=== PATIENT | female | born 1965 | race American Indian/Alaskan Native ===

== ENCOUNTER 2020-03-16 20:13 | Emergency (ER) | payer SELFPAY ==
--- NOTE | 2020-03-17 00:49 | Emergency Department Report ---
[facility] Chief Complaint: Eye Problems Stated Complaint: EYE PAIN Time Seen by Provider: 03/17/20 00:44 Duration: 3 Days Side: Left Severity: mild, moderate Symptoms: Yes Eye Itching, Yes Eye Redness, Yes Eye Pain, Yes Mucous Drainage, Yes Purulent Drainage, Yes Preceding URI, Yes H/O Allergic Rhinitis, No Trauma, No Fever ED Review of Systems ROS: Stated complaint: EYE PAIN Other details as noted in HPI Comment: All other systems reviewed and negative ED Past Medical Hx - Past Medical History Previous Medical History?: Yes Additional medical history: fibroids. endometerosis - Surgical History Past Surgical History?: Yes Additional Surgical History: laser laproscopic. sinus surgery. hernia repair as a child. Myomectomy - Social History Smoking Status: Never Smoker Substance Use Type: None - Medications Home Medications: Home Medications Medication Instructions Recorded Confirmed Last Taken Type Ketorolac Tromethamin 0.4%(Nf) 1 drop OP QID #1 bottle 03/17/20 Unknown Rx [Acular Ls 0.4% Ophth Roxy] Tobramycin [Tobrex] 1 drop OP Q4H #1 bottle 03/17/20 Unknown Rx [facility] Exam - Exam General: Vital signs noted. No distress. Alert and acting appropriately. Eye Exam: Left Injection, Left EOMI, Left Purulent Discharge, Neither Chemosis, Neither Abnormal Pupil, Neither Eye Foreign Body, Neither Lid Foreign Body, Neither Mucous Discharge, Neither Fluorescein Uptake, Neither Fluorescein Uptake (slit lamp), Neither Cell/Flare (slit lamp), Neither Corneal Edema, Neither Photophobia HEENT: Yes Nasal Congestion (Left nasal turbinate swelling and congestion now with yellowish sinus drainage), No Pharyngeal Erythema Remainder of HEENT: Normal Lungs: Yes Clear Lung Sounds, Yes Good Air Exchange, No Wheezes, No Stridor, No Cough, No Nasal Flaring, No Retractions, No Use of Accessory Muscles Exam: Mild swelling around the left periorbital region. The lacrimal apparatus feels normal no evidence of any overt dacryocystitis is present ED Course Vital Signs 03/16/20 20:48 Temperature 98.6 F Pulse Rate 79 Respiratory 17 Rate Blood Pressure 184/71 O2 Sat by Pulse 97 Oximetry Critical care attestation.: If time is entered above; I have spent that time in minutes in the direct care of this critically ill patient, excluding procedure time. ED Disposition Clinical Impression: Conjunctivitis, Nasal congestion Disposition: DC- TO HOME OR SELFCARE Is pt being admited?: No Does the pt Need Aspirin: No Condition: Stable Prescriptions: Ketorolac Tromethamin 0.4%(Nf) [Acular Ls 0.4% Ophth Roxy] 1 drop OP QID #1 bottle Tobramycin [Tobrex] 1 drop OP Q4H #1 bottle Referrals: PRIMARY MD BHARAT [Primary Care Provider] - 3-5 Days SAMMY BAUTISTA MD [Staff Physician] - 3-5 Days
[2020-03-17 05:38] VITALS: BP 177/110
== END 2020-03-17 02:20 | disposition home or self-care (01) ==
LOC: ED 20:13
DX: H10.9 Unspecified conjunctivitis (principal); R09.81 Nasal congestion; Z79.899 Other long term (current) drug therapy; Z88.6 Allergy status to analgesic agent; Z88.2 Allergy status to sulfonamides
CPT/HCPCS: 99282

== ENCOUNTER 2021-09-10 06:31 | Inpatient (IN) | payer BC ==
[2021-09-10] MEDS ORDERED: ONDANSETRON 4 MG ODT TAB PO ONE (07:53)
[2021-09-10 08:06] LABS: Basophils # (Auto) 0.1 K/mm3 (0.0-0.1); Basophils % (Auto) 0.5 % (0.0-1.8); Eosinophils % (Auto) 0.2 % (0.0-4.3); Hemoglobin 13.9 gm/dl (10.1-14.3); Lymphocytes # (Auto) 1.2 K/mm3 (1.2-5.4); Lymphocytes % (Auto) 7.1 % (13.4-35.0); Mean Corpuscular HGB Conc 34 % (30-34); Mean Corpuscular Volume 80 fl (79-97); Monocytes % (Auto) 6.3 % (0.0-7.3); Platelet Count 231 K/mm3 (140-440); Red Blood Count 5.13 M/mm3 (3.65-5.03); Red Cell Distribution Width 14.1 % (13.2-15.2)
[2021-09-10 08:10] LABS: Bacteria,Urine 1+ /HPF (Negative); Bilirubin,Urine NEG (Negative); Blood,Urine NEG (Negative); Color,Urine Yellow (Yellow); Mucus,Urine FEW /HPF; Urobilinogen,Urine < 2.0 mg/dL (<2.0)
[2021-09-10 08:20] LABS: Alanine Aminotransferase 18 units/L (7-56); Albumin 4.7 g/dL (3.9-5); Blood Urea Nitrogen 8 mg/dL (7-17); Calcium 9.1 mg/dL (8.4-10.2); Hemolysis Index 5
[2021-09-10 08:24] LABS: BUN/Creatinine Ratio 11
[2021-09-10] MEDS ORDERED: ONDANSETRON 4 MG/2 ML INJ IV ONE (12:12)
[2021-09-10] MEDS ORDERED: KETOROLAC 30 MG/1 ML INJ IV ONE (12:12)
[2021-09-10] MEDS ORDERED: SODIUM CHLORIDE 0.9% 1000 ML 1,000 ML IV ONE (12:12)
--- NOTE | 2021-09-10 12:15 | Emergency Department Report ---
HPI - General Chief Complaint: Nausea/Vomiting/Diarrhea Time Seen by Provider: 09/10/21 11:54 - HPI HPI: For the last 3 days the patient has been experiencing several episodes of nausea vomiting of clear emesis as well as brown watery diarrhea associated with moderate intermittent diffuse crampy abdominal pain. The patient denies fever chills. She has not taken any medicines for this. Nothing makes it better nor worse. Today she is no longer vomiting but dry heaving. ED Past Medical Hx - Past Medical History Hx Diabetes: Yes Additional medical history: fibroids. endometerosis - Surgical History Additional Surgical History: laser laproscopic. sinus surgery. hernia repair as a child. Myomectomy. BTL - Family History Family history: no significant - Social History Smoking Status: Never Smoker Substance Use Type: None - Medications Home Medications: Home Medications Medication Instructions Recorded Confirmed Last Taken Type Ketorolac Tromethamin 0.4%(Nf) 1 drop OP QID #1 bottle 03/17/20 Unknown Rx [Acular Ls 0.4% Ophth Roxy] Tobramycin [Tobrex] 1 drop OP Q4H #1 bottle 03/17/20 Unknown Rx ED Review of Systems ROS: Stated complaint: FOOD POISON,DIARRHEA,ABDDOMINAL CRAMPING Other details as noted in HPI Other: All other systems reviewed and negative. Physical Exam - Physical Exam Vital Signs: Vital Signs 09/10/21 06:49 Temperature 99.8 F H Pulse Rate 95 H Respiratory 18 Rate Blood Pressure 154/81 O2 Sat by Pulse 96 Oximetry Physical Exam: Physical Exam: Constitutional: AAOX3. No acute distress. No diaphoresis. Obese HENT: Normocephalic. Pupils equal and reactive. No throat edema or erythema. Neck: No neck rigidity or tenderness. Cardiovascular: Heart sounds: No murmur. Normal rate and regular rhythm. Pulses: Intact distal pulses. Lungs: No wheezing or rales. Chest wall: No tenderness. Abdominal: No distension. No mass/pulsatile mass. Minimal diffuse abdominal tenderness, no guarding nor rebound. Musculoskeletal: Normal range of motion. No edema, No calf TTP. Skin: Warm and dry. Neurological: Alert and oriented to person, place, and time. Psychiatric: Mood and affect normal. Normal cognition and memory. Normal judgement. ED Course Vital Signs 09/10/21 06:49 Temperature 99.8 F H Pulse Rate 95 H Respiratory 18 Rate Blood Pressure 154/81 O2 Sat by Pulse 96 Oximetry - Reevaluation(s) Reevaluation #1: 09/10/21 15:34 The patient has an elevated white blood cell count of 16,000. Her CAT scan came back as acute appendicitis with a appendix measurement of 14 mm and very appendiceal inflammatory changes. There is no free fluid or air. I spoke to who recommended we keep the patient n.p.o. she will come to see the patient. I spoke to Dr. Simon who will be admitting the patient. ED Medical Decision Making - Lab Data Result diagrams: 09/10/21 07:35 09/10/21 07:35 Critical care attestation.: If time is entered above; I have spent that time in minutes in the direct care of this critically ill patient, excluding procedure time. ED Disposition Clinical Impression: Acute appendicitis Disposition: [facility] Is pt being admited?: Yes Does the pt Need Aspirin: No Condition: Stable Instructions: Appendicitis, Adult Referrals: PRIMARY CARE, [Primary Care Provider] - 3-5 Days
[2021-09-10] MEDS ORDERED: MORPHINE 2 MG/1 ML INJ IV ONE (13:02)
--- NOTE | 2021-09-10 14:16 | Cat Scan Report ---
CT ABDOMEN AND PELVIS WITH CONTRAST HISTORY: abd pain.. Generalized nausea with vomiting for 3 days, diarrhea COMPARISON: None. TECHNIQUE: CT images of the abdomen and pelvis were obtained following administration of intravenous contrast. All CT scans at this location are performed using CT dose reduction for ALARA by means of automated exposure control. CONTRAST: 100 ml of intravenous contrast administered. FINDINGS: Lungs/bones: There is mild patchy bibasilar airspace disease. Otherwise clear lungs. There are degen erative changes in the spine and the pelvis with no acute osseous abnormality identified. Abdomen/pelvis: The liver, gallbladder, spleen, pancreas, adrenals, right kidney, and proximal GI tr act appear unremarkable. Punctate nonobstructive nephrolithiasis seen in the upper pole the left kidn ey. Fluid-filled appearance of the distal small bowel and the colon with inflammatory change in the cecum and ileocecal valve. The upstream bowel is slightly dilated and fluid-filled and there are several p rominent regional mesenteric lymph nodes. There is a large amount of fluid within the uterus. Ovaries are not well seen on this exam. Small cristina unt of ascites is present in the right lower quadrant. IMPRESSION: 1. Inflammatory change at the cecum and terminal ileum may be seen with enterocolitis with mild obstr uctive/ileus effect on the upstream small bowel which is dilated and fluid-filled. 2. Additional incidental findings as above including large amount of fluid within the endometrial can al. Correlate with history and consider nonemergent pelvic ultrasound for further evaluation. Signer Name: Gerald Lyles MD Signed: 09/10/2021 2:12 PM Workstation Name: [id number]
[2021-09-10] MEDS ORDERED: PIPERACILLIN/TAZOBACTAM 3.375 3.375 GM/50 ML BAG IV ONE (15:21)
[2021-09-10] MEDS ORDERED: oxyCODONE /ACETAMINOPHEN 5-325MG TAB PO PRN (15:37)
[2021-09-10] MEDS ORDERED: ALBUTEROL 2.5 MG/3 ML NEBU IH PRN (15:37)
[2021-09-10] MEDS ORDERED: HYDROmorphone 0.5 MG/0.5 ML INJ IV PRN (15:37)
--- NOTE | 2021-09-10 15:51 | History and Physical Report ---
History of Present Illness Chief complaint: My stomach hurts History of present illness: 56 YO Female with Obesity Hypoventilation Syndrome, DM, Endometriosis, Metabolic Syndrome presents to ED for evaluation. Patient states that she had experienced abdominal pain over the past 1 day with persistent and worsening symptoms over the same timeframe. Patient knowledges nausea, multiple episodes of vomiting, and multiple loose stools. Patient transported to [facility] via private vehicle for further care and evaluation of the aforementioned symptoms. The patient was seen and evaluated in the emergency department. All lab and imaging studies reviewed. Patient underwent CT scan of the abdomen pelvis and was found to have evidence of acute appendicitis complicated by systemic inflammatory response syndrome. Surgery team consulted. Patient taken to operating room as per surgical team. Patient admitted to medical floor due to increased risk of worsening symptoms. Patient denies fever, chills, chest pain, palpitation, adductive cough, skin rash, recent contact, ingestion of food/water from new or different sources, or known exposure to COVID-19. No prior admission for review. No medication listed at time of admission for reconciliation. Advanced care planning conducted in ED. Past History Past Medical History: diabetes, other (See HPI) Past Surgical History: hernia repair, bowel surgery Social history: single. denies: smoking, alcohol abuse, prescription drug abuse Family history: diabetes, hypertension Medications and Allergies Allergies Allergy/AdvReac Type Severity Reaction Status Date / Time codeine Allergy Vomiting Verified 11/18/15 11:45 Sulfa (Sulfonamide Allergy Unknown Verified 11/18/15 11:45 Antibiotics) Home Medications Medication Instructions Recorded Confirmed Last Taken Type Ketorolac Tromethamin 0.4%(Nf) 1 drop OP QID #1 bottle 03/17/20 Unknown Rx [Acular Ls 0.4% Ophth Roxy] Tobramycin [Tobrex] 1 drop OP Q4H #1 bottle 03/17/20 Unknown Rx Active Meds: Active Medications Acetaminophen (Acetaminophen 325 Mg Tab) 650 mg PO Q4H PRN PRN Reason: Pain MILD(1-3)/Fever >100.5/SANDERS Albuterol (Albuterol 2.5 Mg/3 Ml Nebu) 2.5 mg IH Q4HRT PRN PRN Reason: Shortness Of Breath Hydromorphone HCl (Hydromorphone 0.5 Mg/0.5 Ml Inj) 0.5 mg IV Q13H PRN PRN Reason: Pain , Severe (7-10) Piperacillin Sod/Tazobactam Sod (Zosyn/Ns 3.375gm/50ml) 3.375 gm in 50 mls @ 100 mls/hr IV Q8H KRUT; Protocol Ondansetron HCl (Ondansetron 4 Mg/2 Ml Inj) 4 mg IV Q8H PRN PRN Reason: Nausea And Vomiting Oxycodone/Acetaminophen (Oxycodone /Acetaminophen 5-325mg Tab) 1 tab PO Q6H PRN PRN Reason: Pain, Moderate (4-6) Sodium Chloride (Sodium Chloride 0.9% 10 Ml Flush Syringe) 10 ml IV BID KURT Sodium Chloride (Sodium Chloride 0.9% 10 Ml Flush Syringe) 10 ml IV PRN PRN PRN Reason: LINE FLUSH Review of Systems Constitutional: no weight loss, no weight gain, no fever, no chills Ears, nose, mouth and throat: no ear pain, no ear discharge, no tinnitis, no decreased hearing Breasts: no change in shape, no swelling Cardiovascular: no chest pain, no orthopnea, no rapid/irregular heart beat, no edema, no syncope Respiratory: no cough, no excessive sputum Gastrointestinal: abdominal pain, nausea, vomiting, no coffee ground emesis, no BRBPR, no melena, no hematochezia Genitourinary Female: no pelvic pain, no flank pain, no dysuria, no urinary frequency, no urgency Rectal: no pain, no incontinence, no bleeding Musculoskeletal: no neck stiffness, no shooting arm pain, no arm numbness/tingling, no low back pain, no shooting leg pain Integumentary: no rash, no sores, no wounds Neurological: no head injury, no paralysis, no weakness, no numbness, no ti ngling Psychiatric: no anxiety, no memory loss, no change in libido, no suicidal ideation, no disorientation Endocrine: no cold intolerance, no polyphagia, no nocturia, no flushing Hematologic/Lymphatic: no easy bruising, no easy bleeding Allergic/Immunologic: no urticaria, no allergic rhinitis, no wheezing Exam - Constitutional Vitals: Temp Pulse Resp BP Pulse Ox 99.8 F H 95 H 18 154/81 96 09/10/21 06:49 09/10/21 06:49 09/10/21 06:49 09/10/21 06:49 09/10/21 06:49 General appearance: Present: mild distress, obese - EENT Eyes: Present: PERRL ENT: hearing intact, clear oral mucosa - Neck Neck: Present: supple, normal ROM - Respiratory Respiratory effort: normal Respiratory: bilateral: CTA - Cardiovascular Heart Sounds: Present: S1 & S2. Absent: rub, click - Extremities Extremities: pulses symmetrical, No edema Peripheral Pulses: within normal limits - Abdominal General gastrointestinal: Present: soft, tender, non-distended, normal bowel sounds Localized gastrointestinal: tender: RLQ Female genitourinary: Present: normal - Integumentary Integumentary: Present: clear, warm, dry - Musculoskeletal Musculoskeletal: gait normal, strength equal bilaterally - Psychiatric Psychiatric: appropriate mood/affect, intact judgment & insight - Neurologic Neurologic: CNII-XII intact, moves all extremities Results - Labs CBC & Chem 7: 09/10/21 07:35 09/10/21 07:35 Labs: Abnormal lab results 09/10/21 09/10/21 09/10/21 Range/Units 07:35 07:35 12:10 WBC 16.4 H (4.5-11.0) K/mm3 RBC 5.13 H (3.65-5.03) M/mm3 MCH 27 L (28-32) pg Lymph % (Auto) 7.1 L (13.4-35.0) % Hanson # (Auto) 1.0 H (0.0-0.8) K/mm3 Seg Neutrophils % 85.9 H (40.0-70.0) % Seg Neutrophils # 14.1 H (1.8-7.7) K/mm3 Sodium 136 L (137-145) mmol/L Carbon Dioxide 21 L (22-30) mmol/L Glucose 129 H (65-100) mg/dL POC Glucose 167 H (70-105) mg/dL Assessment and Plan - Patient Problems (1) Acute appendicitis Current Visit: Yes Status: Acute Plan to address problem: CT scan abdomen pelvis, CBC, CMP, surgery team consulted, IV antibiotic therapy, IV fluid resuscitation therapy, bowel rest, n.p.o., surgical intervention as per surgical team. Pain control. (2) SIRS (systemic inflammatory response syndrome) Current Visit: Yes Status: Acute Plan to address problem: CBC, CMP, empiric IV antibiotic therapy, IV fluid resuscitation therapy, supportive care. Repeat CBC in a.m. (3) Fluid in endometrial cavity Current Visit: Yes Status: Acute Plan to address problem: Outpatient [employer] follow-up. 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 Recommend outpatient transvaginal ultrasound as per barn and property manager. (4) Obesity hypoventilation syndrome Current Visit: Yes Status: Acute Plan to address problem: Balanced diet, increase physical activity at discharge, outpatient pulmonary follow-up for sleep study. (5) Metabolic syndrome Current Visit: Yes Status: Acute Plan to address problem: Low-cholesterol diet, weight reduction, supportive care, glucose control, (6) Diabetes Current Visit: Yes Status: Acute Plan to address problem: Consistent carbohydrate diet, Accu-Chek, insulin protocol, hypoglycemia protocol. (7) DVT prophylaxis Current Visit: Yes Status: Acute Plan to address problem: SCD to bilateral lower extremities while in bed (8) Advance care planning Current Visit: Yes Status: Acute Plan to address problem: Disease education data, care plan discussed, diagnoses discussed, prognosis discussed, patient is full code. Patient knowledges understanding and agreement with care plan, +30 minutes. (9) Preventative health care Current Visit: Yes Status: Acute Plan to address problem: Patient counseled on rate reduction, risk factor reduction for cardiovascular disease, increase physical activity at discharge, meal planning, patient instructed to follow-up with primary care physician for all age and risk factor appropriate screening tests.
--- NOTE | 2021-09-10 16:41 | Consultation ---
History of Present Illness Consult date: 09/10/21 Reason for consult: abdominal pain - History of present illness History of present illness: General surgery called to consult on a 56-year-old female who presented to the emergency room today. She complains of almost 48-hour abdominal pain with nausea and vomiting and diarrhea. Patient has CT scan which shows inflammation of the cecum appendix to 14 mm consistent with appendicitis. Patient currently rates her pain an 8 out of 10 and is generalized. Patient says she originally thought that the pain was due to food poisoning. Past History Past Medical History: hypothyroidism, other (Perimenopausal, prediabetes) Past Surgical History: Other (Myomectomy, diagnostic laparoscopy, umbilical hernia repair, sinus surgery) Social history: no significant social history Family history: no significant family history Medications and Allergies Allergies Allergy/AdvReac Type Severity Reaction Status Date / Time codeine Allergy Vomiting Verified 11/18/15 11:45 Sulfa (Sulfonamide Allergy Unknown Verified 11/18/15 11:45 Antibiotics) Home Medications Medication Instructions Recorded Confirmed Last Taken Type Ketorolac Tromethamin 0.4%(Nf) 1 drop OP QID #1 bottle 03/17/20 Unknown Rx [Acular Ls 0.4% Ophth Roxy] Tobramycin [Tobrex] 1 drop OP Q4H #1 bottle 03/17/20 Unknown Rx Active Meds: Active Medications Acetaminophen (Acetaminophen 325 Mg Tab) 650 mg PO Q4H PRN PRN Reason: Pain MILD(1-3)/Fever >100.5/SANDERS Albuterol (Albuterol 2.5 Mg/3 Ml Nebu) 2.5 mg IH Q4HRT PRN PRN Reason: Shortness Of Breath Hydromorphone HCl (Hydromorphone 0.5 Mg/0.5 Ml Inj) 0.5 mg IV Q13H PRN PRN Reason: Pain , Severe (7-10) Piperacillin Sod/Tazobactam Sod (Zosyn/Ns 3.375gm/50ml) 3.375 gm in 50 mls @ 100 mls/hr IV Q8H KURT; Protocol Ondansetron HCl (Ondansetron 4 Mg/2 Ml Inj) 4 mg IV Q8H PRN PRN Reason: Nausea And Vomiting Oxycodone/Acetaminophen (Oxycodone /Acetaminophen 5-325mg Tab) 1 tab PO Q6H PRN PRN Reason: Pain, Moderate (4-6) Sodium Chloride (Sodium Chloride 0.9% 10 Ml Flush Syringe) 10 ml IV BID KURT Sodium Chloride (Sodium Chloride 0.9% 10 Ml Flush Syringe) 10 ml IV PRN PRN PRN Reason: LINE FLUSH Review of Systems All systems: negative - Constitutional poor appetite - Gastrointestinal abdominal pain, nausea, vomiting, diarrhea Exam Vital Signs Temp Pulse Resp BP Pulse Ox 99.8 F H 95 H 18 154/81 96 09/10/21 06:49 09/10/21 06:49 09/10/21 06:49 09/10/21 06:49 09/10/21 06:49 - General physical appearance Positive: well developed, no distress, moderate pain, obese - Eyes Positive: PERRL - ENT Positive: no hearing loss - Respiratory Positive: normal expansion, normal respiratory effort - Cardiovascular Heart Sounds: Present: S1 & S2 - Abdomen Abdomen: Present: soft, tender, surgical scars. Absent: guarding, rigid - Neurologic Neurologic: alert and oriented to time, place and person, motor strength and sensation are grossly intact Results - Labs 09/10/21 07:35 09/10/21 07:35 Abnormal lab results 09/10/21 09/10/21 09/10/21 Range/Units 07:35 07:35 12:10 WBC 16.4 H (4.5-11.0) K/mm3 RBC 5.13 H (3.65-5.03) M/mm3 MCH 27 L (28-32) pg Lymph % (Auto) 7.1 L (13.4-35.0) % Morton # (Auto) 1.0 H (0.0-0.8) K/mm3 Seg Neutrophils % 85.9 H (40.0-70.0) % Seg Neutrophils # 14.1 H (1.8-7.7) K/mm3 Sodium 136 L (137-145) mmol/L Carbon Dioxide 21 L (22-30) mmol/L Glucose 129 H (65-100) mg/dL POC Glucose 167 H (70-105) mg/dL Diabetes panel 09/10/21 Range/Units 07:35 Sodium 136 L (137-145) mmol/L Potassium 3.9 (3.6-5.0) mmol/L Chloride 102.9 (98-107) mmol/L Carbon Dioxide 21 L (22-30) mmol/L BUN 8 (7-17) mg/dL Creatinine 0.7 (0.6-1.2) mg/dL Glucose 129 H (65-100) mg/dL Calcium 9.1 (8.4-10.2) mg/dL AST 15 (5-40) units/L ALT 18 (7-56) units/L Alkaline Phosphatase 70 (35-129) units/L Total Protein 7.7 (6.3-8.2) g/dL Albumin 4.7 (3.9-5) g/dL Calcium panel 09/10/21 Range/Units 07:35 Calcium 9.1 (8.4-10.2) mg/dL Albumin 4.7 (3.9-5) g/dL Pituitary panel 09/10/21 Range/Units 07:35 Sodium 136 L (137-145) mmol/L Potassium 3.9 (3.6-5.0) mmol/L Chloride 102.9 (98-107) mmol/L Carbon Dioxide 21 L (22-30) mmol/L BUN 8 (7-17) mg/dL Creatinine 0.7 (0.6-1.2) mg/dL Glucose 129 H (65-100) mg/dL Calcium 9.1 (8.4-10.2) mg/dL Adrenal panel 09/10/21 Range/Units 07:35 Sodium 136 L (137-145) mmol/L Potassium 3.9 (3.6-5.0) mmol/L Chloride 102.9 (98-107) mmol/L Carbon Dioxide 21 L (22-30) mmol/L BUN 8 (7-17) mg/dL Creatinine 0.7 (0.6-1.2) mg/dL Glucose 129 H (65-100) mg/dL Calcium 9.1 (8.4-10.2) mg/dL Total Bilirubin 0.40 (0.1-1.2) mg/dL AST 15 (5-40) units/L ALT 18 (7-56) units/L Alkaline Phosphatase 70 (35-129) units/L Total Protein 7.7 (6.3-8.2) g/dL Albumin 4.7 (3.9-5) g/dL - Imaging CT scan - abdomen: report reviewed, image reviewed CT scan - pelvis: report reviewed, image reviewed Assessment and Plan 56-year-old female with abdominal pain and work-up consistent with acute appendicitis. Patient is afebrile and stable but with leukocytosis. Discussed pathology, prognosis, and both surgical and nonsurgical options with the patient. Patient is consented for laparoscopic appendectomy to be done today. Continue antibiotics and IV fluid hydration.
[2021-09-10] MEDS ORDERED: LIDOCAINE (1%) 10 MG/1 ML VIAL 20 ML MDV ONE (17:02)
[2021-09-10] MEDS ORDERED: BUPIVACAINE/PF (0.5%) 5 MG/1 ML 30 ML VIAL INFILTRATI ONE ×2 (17:03→18:45)
[2021-09-10] MEDS ORDERED: propofoL 200 MG/20 ML VIAL IV ONE (17:15)
[2021-09-10] MEDS ORDERED: fentaNYL 100 MCG/2 ML INJ ONE (17:22)
[2021-09-10] MEDS ORDERED: SUCCINYLCHOLINE CHLORIDE 200 MG/10 ML INJ MDV ONE (17:23)
[2021-09-10] MEDS ORDERED: GLYCOPYRROLATE 0.4 MG/2 ML INJ ONE (17:23)
[2021-09-10] MEDS ORDERED: LIDOCAINE MPF (2%) 20 MG/1 ML VIAL 5 ML ONE ×2 (17:24→17:25)
[2021-09-10] MEDS ORDERED: ROCURONIUM 50 MG/5 ML INJ IV ONE (17:25)
[2021-09-10] MEDS ORDERED: ONDANSETRON 4 MG/2 ML INJ ONE (17:25)
[2021-09-10] MEDS ORDERED: dexAMETHasone 20 MG/5 ML VIAL ONE (17:25)
[2021-09-10] MEDS ORDERED: MIDAZOLAM 2 MG/2 ML INJ ONE (17:26)
[2021-09-10] MEDS ORDERED: HYDROmorphone 1 MG/1 ML INJ ONE ×2 (18:27→19:56)
--- NOTE | 2021-09-10 18:36 | Anesthesia Consultation ---
Anesthesia Consult and Med Hx Date of service: 09/10/21 - Airway Anesthetic Teeth Evaluation: Good ROM Head & Neck: Adequate Mental/Hyoid Distance: Adequate Mallampati Class: Class I Intubation Access Assessment: Good - Pre-Operative Health Status ASA Pre-Surgery Classification: ASA2 Proposed Anesthetic Plan: General - Pulmonary Hx Smoking: No Hx Asthma: No Hx Respiratory Symptoms: No SOB: No COPD: No Home Oxygen Therapy: No Hx Pneumonia: No Hx Sleep Apnea: No - Cardiovascular System Hx Hypertension: No Hx Coronary Artery Disease: No Hx Heart Attack/AMI: No Hx Angina: No Hx Percutaneous Transluminal Coronary Angioplasty (PTCA): No Hx Cardia Arrhythmia: No Hx Pacemaker: No Hx Internal Defibrillator: No Hx Valvular Heart Disease: No Hx Heart Murmur: Yes Hx Peripheral Vascular Disease: No - Central Nervous System Hx Neuromuscular Disorder: No Hx Seizures: No CVA: No Hx Back Pain: No Hx Psychiatric Problems: No - Gastrointestinal Hx Ulcer: No Hx Gastroesophageal Reflux Disease: No - Endocrine Hx Renal Disease: No Hx End Stage Renal Disease: No Hx Cirrhosis: No Hx Liver Disease: No Hx Insulin Dependent Diabetes: No Hx Non-Insulin Dependent Diabetes: Yes (pre-diabetic) Hx Thyroid Disease: Yes Hx Hypothyroidism: Yes Hx Hyperthyroidism: No - Hematic Hx Anemia: No Hx Sickle Cell Disease: No - Other Systems Hx Alcohol Use: No Hx Substance Use: No Hx Cancer: No Hx Obesity: Yes
--- NOTE | 2021-09-10 18:36 | Anesthesia Day of Surgery ---
Anesthesia Day of Surgery - Day of Surgery Patient Examined: Yes Patient H&P Reviewed: Yes Patient is NPO: Yes Beta Blockers: No
[2021-09-10] MEDS ORDERED: WATER FOR IRRIG STERILE 1,500 ML BOTTLE IR ONE (18:45)
[2021-09-10] MEDS ORDERED: LIDOCAINE (1%) 10 MG/1 ML VIAL 20 ML MDV INFILTRATI ONE (18:45)
[2021-09-10] MEDS ORDERED: SUGAMMADEX SODIUM 200 MG/2 ML VIAL IV ONE (19:47)
--- NOTE | 2021-09-10 20:25 | Operative Report ---
Operative Report Operative Report: Date of Service: 09/10/2021 Primary Surgeon: Iliana Rios MD Procedure: Laparoscopic Appendectomy Anesthesia: GETA Pre-Operative Diagnosis: acute appendicitis Post-Operative Diagnosis: perforated appendicitis Indications for Procedure: 56 year old female presented to ED with two day hx of abdominal pain with nausea and vomiting. She had a CT that showed finding consistent with appendicitis. Pt signed consent for laparoscopic appendectomy. Description of Procedure(s): The patient was brought to the operating room and underwent general anesthesia after lower extremity SCD were placed. A jeronimo catheter was inserted under sterile conditions and the left arm was tucked gent ly at their side. The abdomen was prepped and draped in the standard fashion. IV antibiotics were given and a time out was performed. Using a veress needle via a stab incision in the umbilicus, the abdomen was insuflated to a pressure of 15mmHg. Using optivew technique, a 5mm trocar was placed just superior and to the left of the umbilicus. There was no gross injury noted to any intra- abdominal structures. After which working trocars were placed under direct visualization. A 12 mm trocar was placed in left mid abdomen, and a 5 mm trocar was inserted in the suprapubic area. The patient was placed in slight Trendelenburg position and tilted towards her left side. The cecum was identified and mobilized, as well as the terminal ileum. There was gross purulent fluid in the pelvis and right paracolic gutter. The appendix was noted to be matted with inflammatory adhesions to the cecum and terminal ileum. Once it was it was noted to be perforated at the base of the appendix. A blue load on the endoscopic stapler was used to transect the appendix at the base. Because the perforation was so close to the base even though the staple line on the cecum looks secure, and Endo Stitch was used to place several support stitches around the staple line, as well as pexing some epiploic appendages over the staple line as well. The area was found to be hemostatically sound. The pelvis and right lower quadrant were copiously aspirated of fluid with minimal irrigation. The appendix was placed in Endo Catch bag. It was then retrieved via the 12 mm trocar. A 19 [place]er round drain was placed into the pelvis and right lower quadrant and exited out of the suprapubic incision. It was secured with a 2-0 nylon. This was done prior to retrieval of the appendix from the 12 mm trocar site. The fascia at the 12 mm trocar site was then closed using a O-vicryl and a suture passer device. The insufflation was then terminated. The skin incisions were closed using 4-0 Monocryl sutures. All the wounds dressed with dermabond. The drain was covered with a drain sponge followed by Tegaderm. The patient tolerated the procedure well, was extubated and taken to the recovery room in satisfactory condition. Specimen: appendix Complications: none immediate EBl:30ml Findings:perforated appendix at the base with purulent drainage in the pelvis
--- NOTE | 2021-09-10 20:35 | Post Anesthesia Evaluation ---
- Post Anesthesia Evaluation Patient Participated: Yes Airway Patent: Yes Stable Respiratory Function: Yes Nausea/Vomiting: No Temp > 96.8F: Yes Pain Manageable: Yes Adequeate Hydration: Yes Anesthesia Complications: No Block Receding Appropriately: Not Applicable Patient on Ventilator: No Other Comments: pt a+o x 3. resting comfortable in bed. no distress noted. vitals stable. awaiting transfer to floor.
[2021-09-10] MEDS ORDERED: diphenhydrAMINE 50 MG/ML VIAL ONE (20:50)
[2021-09-10] MEDS ORDERED: diphenhydrAMINE 50 MG/ML VIAL IV ONE (20:52)
[2021-09-10] MEDS ORDERED: GABAPENTIN 500 MG/10 ML ORAL LIQD PO ONE (21:30)
[2021-09-10] MEDS: PIPERACILLIN/TAZOBACTAM 3.375 3.375 GM/50 ML BAG IV SCH (23:55)
[2021-09-11] MEDS: PIPERACILLIN/TAZOBACTAM 3.375 3.375 GM/50 ML BAG IV SCH (05:39)
[2021-09-11 05:48] LABS: Basophils % (Auto) 0.2 % (0.0-1.8); Hematocrit 34.7 % (30.3-42.9); Hemoglobin 11.9 gm/dl (10.1-14.3); Lymphocytes # (Auto) 0.6 K/mm3 (1.2-5.4); Lymphocytes % (Auto) 5.9 % (13.4-35.0); Mean Corpuscular HGB Conc 34 % (30-34); Mean Corpuscular Volume 79 fl (79-97); Monocytes # (Auto) 0.7 K/mm3 (0.0-0.8); Monocytes % (Auto) 6.3 % (0.0-7.3); Platelet Count 182 K/mm3 (140-440); Red Blood Count 4.41 M/mm3 (3.65-5.03); Red Cell Distribution Width 13.8 % (13.2-15.2)
[2021-09-11 06:04] LABS: Blood Urea Nitrogen 12 mg/dL (7-17); Calcium 8.4 mg/dL (8.4-10.2); Hemolysis Index 11
[2021-09-11 06:05] LABS: BUN/Creatinine Ratio 17
[2021-09-11] MEDS: diphenhydrAMINE 50 MG/ML VIAL IV PRN (07:34)
[2021-09-11] MEDS: MORPHINE 2 MG/1 ML INJ IV PRN ×2 (11:20→20:41)
--- NOTE | 2021-09-11 12:05 | Progress Note ---
Assessment and Plan 56 YO Female with Obesity, DM, Endometriosis presented to the hospital with 1 day duration of abdominal pain. Patient underwent CT scan of the abdomen pelvis and was found to have evidence of acute appendicitis complicated by systemic inflammatory response syndrome. Surgery team consulted. Patient taken to operating room as per surgical team and found to have perforated appendix with purulent discharge. 09/11: Status post appendectomy yesterday, surgery following, continue empiric antibiotics. Discharge planning per surgery recommendation continue supportive care. Start on clear liquid diet, patient spiking fever -continue Zosyn Assessment and plan: (1) Acute appendicitis Current Visit: Yes Status: Acute Plan to address problem: CT scan abdomen pelvis, CBC, CMP, surgery team consulted, IV antibiotic therapy, IV fluid resuscitation therapy, bowel rest, n.p.o., surgical intervention as per surgical team. Pain control. (2) SIRS -likely due to acute appendicitis with perforation and peritonitis Current Visit: Yes Status: Acute Plan to address problem: CBC, CMP, empiric IV antibiotic therapy, IV fluid resuscitation therapy, supportive care. Repeat CBC in a.m. (3) Fluid in endometrial cavity Current Visit: Yes Status: Acute Plan to address problem: Outpatient [facility] follow-up. Patient has history of endometriosis and undergone prior work-up by her crankshaft straightener. Recommend outpatient transvaginal ultrasound as per crankshaft straightener. (4) Obesity hypoventilation syndrome Current Visit: Yes Status: Acute Plan to address problem: Balanced diet, increase physical activity at discharge, outpatient pulmonary follow-up for sleep study. (5) Metabolic syndrome Current Visit: Yes Status: Acute Plan to address problem: Low-cholesterol diet, weight reduction, supportive care, glucose control, (6) Diabetes Current Visit: Yes Status: Acute Plan to address problem: Consistent carbohydrate diet, Accu-Chek, insulin protocol, hypoglycemia tremayne col. (7) DVT prophylaxis Current Visit: Yes Status: Acute Plan to address problem: SCD to bilateral lower extremities while in bed (8) Advance care planning Current Visit: Yes Status: Acute Plan to address problem: Disease education data, care plan discussed, diagnoses discussed, prognosis discussed, patient is full code. Patient knowledges understanding and agreement with care plan, +30 minutes. (9) Preventative health care Current Visit: Yes Status: Acute Plan to address problem: Patient counseled on rate reduction, risk factor reduction for cardiovascular disease, increase physical activity at discharge, meal planning, patient instructed to follow-up with primary care physician for all age and risk factor appropriate screening tests. Subjective Date of service: 09/11/21 Interval history: Patient seen and examined. Medical records and medication list reviewed. No acute event overnight noted by the RN. Patient denies any chest pain or difficulty breathing. Patient is tolerating diet. Discussed plan of care at bedside with patient. Objective - Exam Narrative Exam: GENERAL: well-developed and obese female lying on bed appeared to be in no discomfort. HEENT: Normocephalic. Atraumatic. No conjunctival congestion or icterus. Patient has moist mucous membranes. NECK: Supple. Trachea midline. CHEST/LUNGS: Clear to auscultated bilaterally, breathing nonlabored. No wheezes crackles or rhonchi. HEART/CARDIOVASCULAR: Regular in rate and rhythm. S1 and S2 positive. ABDOMEN: Abdomen is soft, nontender. Patient has normal bowel sounds. SKIN: There is no rash. Warm and dry. NEURO: No focal motor deficit. Follows command. MUSCULOSKELETAL: No joint effusion or tenderness. EXTRIMITY: No edema, no cyanosis or clubbing. PSYCH: Cooperative. - Constitutional Vitals: Vital Signs - 12hr 09/11/21 09/11/21 02:51 05:02 Temperature 97.8 F Pulse Rate 75 Respiratory 20 Rate Blood Pressure 118/58 O2 Sat by Pulse 96 99 Oximetry - Labs CBC & Chem 7: 09/12/21 05:50 09/11/21 05:19 Labs: Abnormal lab results 09/10/21 09/10/21 09/10/21 Range/Units 12:10 20:18 23:25 MCH (28-32) pg Lymph % (Auto) (13.4-35.0) % Lymph # (Auto) (1.2-5.4) K/mm3 Seg Neutrophils % (40.0-70.0) % Seg Neutrophils # (1.8-7.7) K/mm3 Chloride (98-107) mmol/L Glucose (65-100) mg/dL POC Glucose 167 H 203 H 190 H (70-105) mg/dL 09/11/21 09/11/21 09/11/21 Range/Units 05:19 05:19 08:07 MCH 27 L (28-32) pg Lymph % (Auto) 5.9 L (13.4-35.0) % Lymph # (Auto) 0.6 L (1.2-5.4) K/mm3 Seg Neutrophils % 87.6 H (40.0-70.0) % Seg Neutrophils # 9.3 H (1.8-7.7) K/mm3 Chloride 107.3 H (98-107) mmol/L Glucose 143 H (65-100) mg/dL POC Glucose 118 H (70-105) mg/dL
[2021-09-11] MEDS ORDERED: SODIUM CHLORIDE 0.9% 1000 ML 1,000 ML ONE (12:43)
[2021-09-11] MEDS: SODIUM CHLORIDE 0.9% 1000 ML 1,000 ML IV SCH (12:45)
[2021-09-11] MEDS: PIPERACIL/TAZOBACTA 4.5/NS 100 4.5 GM/100 ML VIAL IV SCH ×2 (14:08→22:55)
[2021-09-11] MEDS: LORATADINE/PSEUDOEPHEDRINE 10-240 MG TAB 24HR PO SCH (15:02)
[2021-09-11] MEDS: ONDANSETRON 4 MG/2 ML INJ IV PRN (15:07)
[2021-09-11] MEDS: HYDROmorphone 0.5 MG/0.5 ML INJ IV PRN (17:13)
[2021-09-11] MEDS: ACETAMINOPHEN 325 MG TAB PO PRN (17:43)
--- NOTE | 2021-09-11 17:50 | Progress Note ---
Assessment and Plan Postop day #1 status post laparoscopic appendectomy for perforated appendicitis. Patient is afebrile and stable with decreasing leukocytosis. Patient has some postop ileus as expected due to significant inflammation. Recommend continuing clear liquids and IV hydration. We will check CBC in a.m. and continue to follow. Subjective Date of service: 09/11/21 Narrative: No acute events overnight. Patient complains of expected postsurgical pain along with some nausea but no vomiting. Objective Vital Signs - 12hr 09/11/21 17:29 Temperature 101.5 F H Pulse Rate 100 H Respiratory 20 Rate Blood Pressure 162/80 [Right] O2 Sat by Pulse 96 Oximetry - General physical appearance well developed, no distress, moderate pain, obese - Eyes PERRL - ENT no hearing loss - Respiratory normal expansion, normal respiratory effort - Abdomen soft, not guarding, other (Incisions clean dry and intact, TREY drain intact with serosanguineous drainage) - Labs 09/11/21 05:19 09/11/21 05:19 Diabetes panel 09/11/21 Range/Units 05:19 Sodium 138 (137-145) mmol/L Potassium 4.0 (3.6-5.0) mmol/L Chloride 107.3 H (98-107) mmol/L Carbon Dioxide 23 (22-30) mmol/L BUN 12 (7-17) mg/dL Creatinine 0.7 (0.6-1.2) mg/dL Glucose 143 H (65-100) mg/dL Calcium 8.4 (8.4-10.2) mg/dL Calcium panel 09/11/21 Range/Units 05:19 Calcium 8.4 (8.4-10.2) mg/dL Pituitary panel 09/11/21 Range/Units 05:19 Sodium 138 (137-145) mmol/L Potassium 4.0 (3.6-5.0) mmol/L Chloride 107.3 H (98-107) mmol/L Carbon Dioxide 23 (22-30) mmol/L BUN 12 (7-17) mg/dL Creatinine 0.7 (0.6-1.2) mg/dL Glucose 143 H (65-100) mg/dL Calcium 8.4 (8.4-10.2) mg/dL Adrenal panel 09/11/21 Range/Units 05:19 Sodium 138 (137-145) mmol/L Potassium 4.0 (3.6-5.0) mmol/L Chloride 107.3 H (98-107) mmol/L Carbon Dioxide 23 (22-30) mmol/L BUN 12 (7-17) mg/dL Creatinine 0.7 (0.6-1.2) mg/dL Glucose 143 H (65-100) mg/dL Calcium 8.4 (8.4-10.2) mg/dL
[2021-09-11] MEDS ORDERED: ONDANSETRON 4 MG/2 ML INJ IV ONE (19:08)
[2021-09-11] MEDS: KETOROLAC 30 MG/1 ML INJ IV SCH (20:45)
--- NOTE | 2021-09-11 21:10 | XRay Report ---
XR abdomen 1V ap INDICATION / CLINICAL INFORMATION: Persistent Nausea. COMPARISON: CT from yesterday, 09/02/2021. FINDINGS: BOWEL GAS PATTERN: Persistent mild dilatation of the small bowel, stable. There is also gas distentio n of the stomach and colon. FREE AIR / EXTRALUMINAL GAS: None seen. ADDITIONAL FINDINGS: No significant additional findings. IMPRESSION: Unchanged diffuse mildly dilated small bowel. No free air. Signer Name: Michael Meng MD Signed: 09/11/2021 9:05 PM Workstation Name: [id number]
[2021-09-11] MEDS ORDERED: METOCLOPRAMIDE 10 MG/2 ML INJ IV ONE (22:29)
[2021-09-11] MEDS ORDERED: IBUPROFEN 600 MG TAB PO ONE (22:30)
[2021-09-12] MEDS: HYDROmorphone 0.5 MG/0.5 ML INJ IV PRN ×4 (00:16→22:45)
[2021-09-12] MEDS: KETOROLAC 30 MG/1 ML INJ IV SCH ×4 (02:34→20:48)
[2021-09-12] MEDS: PIPERACIL/TAZOBACTA 4.5/NS 100 4.5 GM/100 ML VIAL IV SCH ×2 (05:31→14:25)
[2021-09-12 07:18] LABS: Basophils % (Auto) 0.4 % (0.0-1.8); Eosinophils % (Auto) 0.3 % (0.0-4.3); Hematocrit 35.4 % (30.3-42.9); Hemoglobin 11.7 gm/dl (10.1-14.3); Lymphocytes # (Auto) 0.4 K/mm3 (1.2-5.4); Lymphocytes % (Auto) 6.1 % (13.4-35.0); Mean Corpuscular HGB Conc 33 % (30-34); Mean Corpuscular Volume 80 fl (79-97); Monocytes # (Auto) 0.5 K/mm3 (0.0-0.8); Platelet Count 170 K/mm3 (140-440); Red Blood Count 4.44 M/mm3 (3.65-5.03); Red Cell Distribution Width 14.2 % (13.2-15.2)
[2021-09-12] MEDS: ONDANSETRON 4 MG/2 ML INJ IV PRN (08:23)
[2021-09-12] MEDS: ACETAMINOPHEN 325 MG TAB PO PRN (12:08)
--- NOTE | 2021-09-12 12:28 | Progress Note ---
Assessment and Plan 56 YO Female with Obesity, DM, Endometriosis presented to the hospital with 1 day duration of abdominal pain. Patient underwent CT scan of the abdomen pelvis and was found to have evidence of acute appendicitis complicated by systemic inflammatory response syndrome. Surgery team consulted. Patient taken to operating room as per surgical team and found to have perforated appendix with purulent discharge. 09/11: Status post appendectomy yesterday, surgery following, continue empiric antibiotics. Discharge planning per surgery recommendation continue supportive care. Start on clear liquid diet, patient spiking fever -continue Zosyn 09/12: Patient continued to have low-grade fever, continue with Zosyn, follow culture. Continue clear liquid diet for now will advance diet per surgery recommendation. Assessment and plan: (1) Acute appendicitis Current Visit: Yes Status: Acute Plan to address problem: CT scan abdomen pelvis, CBC, CMP, surgery team consulted, IV antibiotic therapy, IV fluid resuscitation therapy, bowel rest, n.p.o., surgical intervention as per surgical team. Pain control. (2) SIRS -likely due to acute appendicitis with perforation and peritonitis Current Visit: Yes Status: Acute Plan to address problem: CBC, CMP, empiric IV antibiotic therapy, IV fluid resuscitation therapy, supportive care. Repeat CBC in a.m. (3) Fluid in endometrial cavity Current Visit: Yes Status: Acute Plan to address problem: Outpatient [facility] follow-up. Patient has history of endometriosis and undergone prior work-up by her comic book designer. Recommend outpatient transvaginal ultrasound as per comic book designer. (4) Obesity hypoventilation syndrome Current Visit: Yes Status: Acute Plan to address problem: Balanced diet, increase physical activity at discharge, outpatient pulmonary follow-up for sleep study. (5) Metabolic syndrome Current Visit: Yes Status: Acute Plan to address problem: Low-cholesterol diet, weight reduction, supportive care, glucose control, (6) Diabetes Current Visit: Yes Status: Acute Plan to address problem: Consistent carbohydrate diet, Accu-Chek, insulin protocol, hypoglycemia protocol. (7) DVT prophylaxis Current Visit: Yes Status: Acute Plan to address problem: SCD to bilateral lower extremities while in bed (8) Advance care planning Current Visit: Yes Status: Acute Plan to address problem: Disease education data, care plan discussed, diagnoses discussed, prognosis discussed, patient is full code. Patient knowledges understanding and agreement with care plan, +30 minutes. (9) Preventative health care Current Visit: Yes Status: Acute Plan to address problem: Patient counseled on rate reduction, risk factor reduction for cardiovascular disease, increase physical activity at discharge, meal planning, patient inst ructed to follow-up with primary care physician for all age and risk factor appropriate screening tests. Subjective Date of service: 09/12/21 Interval history: Patient seen and examined. Medical records and medication list reviewed. No acute event overnight noted by the RN. Patient denies any chest pain or difficulty breathing. Patient is tolerating diet. patient spiking low grade fever Discussed plan of care at bedside with patient. Objective - Exam Narrative Exam: GENERAL: well-developed and obese female lying on bed appeared to be in no discomfort. HEENT: Normocephalic. Atraumatic. No conjunctival congestion or icterus. Patient has moist mucous membranes. NECK: Supple. Trachea midline. CHEST/LUNGS: Clear to auscultated bilaterally, breathing nonlabored. No wheezes crackles or rhonchi. HEART/CARDIOVASCULAR: Regular in rate and rhythm. S1 and S2 positive. ABDOMEN: Abdomen is soft, nontender. Patient has normal bowel sounds. SKIN: There is no rash. Warm and dry. NEURO: No focal motor deficit. Follows command. MUSCULOSKELETAL: No joint effusion or tenderness. EXTRIMITY: No edema, no cyanosis or clubbing. PSYCH: Cooperative. - Constitutional Vitals: Vital Signs - 12hr 09/12/21 09/12/21 09/12/21 05:41 05:50 07:54 Temperature 98.6 F Pulse Rate 85 Respiratory 18 Rate Blood Pressure Blood Pressure 119/72 [Left] O2 Sat by Pulse 96 97 96 Oximetry 09/12/21 11:33 Temperature 100.3 F H Pulse Rate 88 Respiratory 20 Rate Blood Pressure 138/71 Blood Pressure [Left] O2 Sat by Pulse 94 Oximetry - Labs CBC & Chem 7: 09/12/21 05:50 09/11/21 05:19 Labs: Abnormal lab results 09/11/21 09/12/21 09/12/21 Range/Units 16:19 02:38 05:50 MCH 26 L (28-32) pg Lymph % (Auto) 6.1 L (13.4-35.0) % Lymph # (Auto) 0.4 L (1.2-5.4) K/mm3 Seg Neutrophils % 86.2 H (40.0-70.0) % POC Glucose 107 H 121 H (70-105) mg/dL 09/12/21 Range/Units 07:39 MCH (28-32) pg Lymph % (Auto) (13.4-35.0) % Lymph # (Auto) (1.2-5.4) K/mm3 Seg Neutrophils % (40.0-70.0) % POC Glucose 106 H (70-105) mg/dL
[2021-09-12] MEDS: LORATADINE/PSEUDOEPHEDRINE 10-240 MG TAB 24HR PO SCH (14:25)
--- NOTE | 2021-09-12 15:11 | Progress Note ---
Assessment and Plan Postop day #2 status post laparoscopic appendectomy for perforated appendicitis. Patient is febrile episodically and stable with decreasing leukocytosis. Patient has some postop ileus as expected due to significant inflammation. Recommend continuing clear liquids and IV hydration. We will check CBC in a.m. encourage patient to ambulate. Subjective Date of service: 09/12/21 Narrative: Patient was febrile overnight. Patient says that she feels like her bowels are growling. Patient did pass gas this morning. Patient has nausea but no vomiting with clear liquids. Objective Vital Signs - 12hr 09/12/21 09/12/21 09/12/21 05:41 05:50 07:54 Temperature 98.6 F Pulse Rate 85 Respiratory 18 Rate Blood Pressure Blood Pressure 119/72 [Left] O2 Sat by Pulse 96 97 96 Oximetry 09/12/21 11:33 Temperature 100.3 F H Pulse Rate 88 Respiratory 20 Rate Blood Pressure 138/71 Blood Pressure [Left] O2 Sat by Pulse 94 Oximetry - General physical appearance well developed, no distress, moderate pain, obese - Eyes PERRL - Respiratory normal expansion, normal respiratory effort - Abdomen soft, distended, other (Incisions clean dry and intact, TREY drain serous, appropriately tender to palpation) - Neurologic normal coordination - Psychiatric oriented to time, oriented to person, oriented to place - Labs 09/12/21 05:50 09/11/21 05:19
[2021-09-12] MEDS: metroNIDAZOLE/NS 500 MG/100 ML 500 MG/100 ML BAG IV SCH (15:59)
[2021-09-12] MEDS: METOCLOPRAMIDE 10 MG/2 ML INJ IV PRN (15:59)
[2021-09-12] MEDS: MORPHINE 2 MG/1 ML INJ IV PRN (15:59)
[2021-09-12] MEDS: buPROPion 100 MG TAB PO SCH (17:02)
[2021-09-12] MEDS: MONTELUKAST 10 MG TAB PO SCH (22:45)
[2021-09-13] MEDS: KETOROLAC 30 MG/1 ML INJ IV SCH ×4 (01:02→22:02)
[2021-09-13] MEDS: metroNIDAZOLE/NS 500 MG/100 ML 500 MG/100 ML BAG IV SCH ×3 (01:03→16:03)
[2021-09-13] MEDS: HYDROmorphone 0.5 MG/0.5 ML INJ IV PRN ×3 (05:25→18:52)
[2021-09-13] MEDS: SODIUM CHLORIDE 0.9% 1000 ML 1,000 ML IV SCH (06:02)
[2021-09-13 07:01] LABS: Basophils % (Auto) 0.5 % (0.0-1.8); Eosinophils # (Auto) 0.1 K/mm3 (0.0-0.4); Eosinophils % (Auto) 1.4 % (0.0-4.3); Hematocrit 34.5 % (30.3-42.9); Hemoglobin 11.5 gm/dl (10.1-14.3); Lymphocytes # (Auto) 0.4 K/mm3 (1.2-5.4); Lymphocytes % (Auto) 6.9 % (13.4-35.0); Mean Corpuscular HGB Conc 33 % (30-34); Mean Corpuscular Volume 79 fl (79-97); Monocytes # (Auto) 0.5 K/mm3 (0.0-0.8); Platelet Count 169 K/mm3 (140-440); Red Blood Count 4.37 M/mm3 (3.65-5.03)
[2021-09-13] MEDS ORDERED: NON-FORMULARY EACH (Loratadine [Loratadine] 10 MG Tablet) PO SCH (10:00)
[2021-09-13] MEDS ORDERED: FLUOXETINE HCL 20 MG PO SCH (10:00)
[2021-09-13] MEDS: FLUoxetine 20 MG CAP PO SCH (10:01)
[2021-09-13] MEDS: buPROPion 100 MG TAB PO SCH (10:01)
[2021-09-13] MEDS: LORATADINE/PSEUDOEPHEDRINE 10-240 MG TAB 24HR PO SCH (10:03)
--- NOTE | 2021-09-13 10:18 | Post Anesthesia Evaluation ---
- Post Anesthesia Evaluation Patient Participated: Yes Airway Patent: Yes Stable Respiratory Function: Yes Nausea/Vomiting: No Temp > 96.8F: Yes Pain Manageable: Yes Adequeate Hydration: Yes Anesthesia Complications: No Block Receding Appropriately: Not Applicable Patient on Ventilator: No
[2021-09-13] MEDS ORDERED: oxyCODONE /ACETAMINOPHEN 5-325MG TAB PO PRN (12:48)
--- NOTE | 2021-09-13 12:52 | Progress Note ---
Assessment and Plan Postop day #3 status post laparoscopic appendectomy for perforated appendicitis. Patient is febrile episodically and stable with decreasing leukocytosis. Patient has some postop ileus as expected due to significant inflammation. Patient is showing signs of return of bowel function. Will advance to full liquid diet and oral pain medication. If patient continues to progress well can plan for tentative discharge next 48 hours. Subjective Date of service: 09/13/21 Narrative: No acute events overnight. Patient says her nausea is improved and she is passing gas. She has not had a bowel movement yet. Objective Vital Signs - 12hr 09/13/21 09/13/21 09/13/21 04:40 05:00 08:33 Temperature 99.8 F H Pulse Rate 91 H Respiratory 18 Rate Blood Pressure 153/87 O2 Sat by Pulse 95 96 95 Oximetry 09/13/21 09/13/21 10:00 11:15 Temperature 99.6 F Pulse Rate 86 Respiratory 18 Rate Blood Pressure 141/76 O2 Sat by Pulse 99 98 Oximetry - General physical appearance no distress, no pain, obese - Eyes PERRL - Respiratory normal expansion, normal respiratory effort - Abdomen soft, distended, not guarding, not rigid, other (Incisions clean dry and intact, TREY drain serous, appropriately tender to palpation.) - Labs 09/13/21 06:05 09/11/21 05:19
[2021-09-13] MEDS: SIMETHICONE 80 MG CHEW TAB PO PRN (14:56)
[2021-09-13] MEDS ORDERED: ALUM-MAG HYDROXIDE-SIMETHICONE 200-200-20MG/5ML ORAL LIQD 30 ML PO ONE (15:00)
--- NOTE | 2021-09-13 18:00 | Progress Note ---
Assessment and Plan Assessment and plan: 56 YO Female with Obesity, DM, Endometriosis presented to the hospital with 1 day duration of abdominal pain. Patient underwent CT scan of the abdomen pelvis and was found to have evidence of acute appendicitis complicated by systemic inflammatory response syndrome. Surgery team consulted. Patient taken to operating room as per surgical team and found to have perforated appendix with purulent discharge. 09/11: Status post appendectomy yesterday, surgery following, continue empiric antibiotics. Discharge planning per surgery recommendation continue supportive care. Start on clear liquid diet, patient spiking fever -continue Zosyn 09/12: Patient continued to have low-grade fever, continue with Zosyn, follow culture. Continue clear liquid diet for now will advance diet per surgery recommendation. 56 YO Female with Obesity, DM, Endometriosis presented to the hospital with 1 day duration of abdominal pain. Patient underwent CT scan of the abdomen pelvis and was found to have evidence of acute appendicitis complicated by systemic inflammatory response syndrome. Surgery team consulted. Patient taken to operating room as per surgical team and found to have perforated appendix with purulent discharge. 09/11: Status post appendectomy yesterday, surgery following, continue empiric antibiotics. Discharge planning per surgery recommendation continue supportive care. Start on clear liquid diet, patient spiking fever -continue Zosyn 09/12: Patient continued to have low-grade fever, continue with Zosyn, follow culture. Continue clear liquid diet for now will advance diet per surgery recommendation. 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 Patient has history of endometriosis and undergone prior work-up by her inspector and adjuster golf club head. Recommend outpatient transvaginal ultrasound as per inspector and adjuster golf club head. --Obesity hypoventilation syndrome Diet modification, exercise as tolerated and weight reduction Oxygen evaluation, CPAP BiPAP if needed Outpatient sleep study to rule out obstructive sleep apnea Outpatient pulmonary follow-up -- Metabolic syndrome Diet modification exercise as tolerated and weight reduction When medically stable -- Type II diabetes Accu-Cheks sliding scale coverage ADA diet Long-acting insulin as needed Avoid hypoglycemia Diabetic education and diabetic diet education --DVT prophylaxis SCD to bilateral lower extremities while in bed --Advance care planning Disease education data, care plan discussed, diagnoses discussed, prognosis discussed, patient is full code. Patient knowledges understanding and agreement with care plan, +30 minutes. --Preventive health care Patient counseled on rate reduction, risk factor reduction for cardiovascular disease, increase physical activity at discharge, meal planning, patient instructed to follow-up with primary care physician for all age and risk factor appropriate screening tests. We will closely monitor the patient and adjust management as needed Plan of care reviewed with the patient and her nurse Discharge planning per case management Possible discharge in 1 to 2 days if stable History Interval history: I have seen and examined the patient at the bedside Patient's chart and medications reviewed No new events reported by nursing Patient is tolerating clear liquids Vital signs noted Hospitalist Physical - Constitutional Vitals: Temp Pulse Resp BP Pulse Ox 99.6 F 86 18 141/76 98 09/13/21 11:15 09/13/21 11:15 09/13/21 11:15 09/13/21 11:15 09/13/21 11:15 General appearance: Present: no acute distress, well-nourished, obese - EENT Eyes: Present: PERRL, EOM intact - Neck Neck: Present: supple, normal ROM - Respiratory Respiratory effort: normal Respiratory: bilateral: diminished, negative: rales, rhonchi, wheezing - Cardiovascular Rhythm: regular Heart Sounds: Present: S1 & S2 - Extremities Extremities: no ischemia, No edema - Abdominal General gastrointestinal: soft, non-tender, non-distended, normal bowel sounds - Integumentary Integumentary: Present: clear, warm - Psychiatric Psychiatric: appropriate mood/affect, cooperative - Neurologic Neurologic: CNII-XII intact, moves all extremities Results - Labs CBC & Chem 7: 09/13/21 06:05 09/11/21 05:19 Labs: Laboratory Last Values WBC 5.4 K/mm3 (4.5-11.0) 09/13/21 06:05 RBC 4.37 M/mm3 (3.65-5.03) 09/13/21 06:05 Hgb 11.5 gm/dl (10.1-14.3) 09/13/21 06:05 Hct 34.5 % (30.3-42.9) 09/13/21 06:05 MCV 79 fl (79-97) 09/13/21 06:05 MCH 26 pg (28-32) L 09/13/21 06:05 MCHC 33 % (30-34) 09/13/21 06:05 RDW 14.0 % (13.2-15.2) 09/13/21 06:05 Plt Count 169 K/mm3 (140-440) 09/13/21 06:05 Lymph % (Auto) 6.9 % (13.4-35.0) L 09/13/21 06:05 [place] % (Auto) 10.0 % (0.0-7.3) H 09/13/21 06:05 Eos % (Auto) 1.4 % (0.0-4.3) 09/13/21 06:05 Baso % (Auto) 0.5 % (0.0-1.8) 09/13/21 06:05 Lymph # (Auto) 0.4 K/mm3 (1.2-5.4) L 09/13/21 06:05 [place] # (Auto) 0.5 K/mm3 (0.0-0.8) 09/13/21 06:05 Eos # (Auto) 0.1 K/mm3 (0.0-0.4) 09/13/21 06:05 Baso # (Auto) 0.0 K/mm3 (0.0-0.1) 09/13/21 06:05 Seg Neutrophils % 81.2 % (40.0-70.0) H 09/13/21 06:05 Seg Neutrophils # 4.4 K/mm3 (1.8-7.7) 09/13/21 06:05 Sodium 138 mmol/L (137-145) 09/11/21 05:19 Potassium 4.0 mmol/L (3.6-5.0) 09/11/21 05:19 Chloride 107.3 mmol/L (98-107) H 09/11/21 05:19 Carbon Dioxide 23 mmol/L (22-30) 09/11/21 05:19 Anion Gap 12 mmol/L 09/11/21 05:19 BUN 12 mg/dL (7-17) 09/11/21 05:19 Creatinine 0.7 mg/dL (0.6-1.2) 09/11/21 05:19 Estimated GFR > 60 ml/min 09/11/21 05:19 BUN/Creatinine Ratio 17 % 09/11/21 05:19 Glucose 143 mg/dL (65-100) H 09/11/21 05:19 POC Glucose 100 mg/dL (70-105) 09/13/21 15:40 Lactic Acid 1.00 mmol/L (0.7-2.0) 09/10/21 15:34 Calcium 8.4 mg/dL (8.4-10.2) 09/11/21 05:19 Total Bilirubin 0.40 mg/dL (0.1-1.2) 09/10/21 07:35 AST 15 units/L (5-40) 09/10/21 07:35 ALT 18 units/L (7-56) 09/10/21 07:35 Alkaline Phosphatase 70 units/L (35-129) 09/10/21 07:35 Total Protein 7.7 g/dL (6.3-8.2) 09/10/21 07:35 Albumin 4.7 g/dL (3.9-5) 09/10/21 07:35 Albumin/Globulin Ratio 1.6 % 09/10/21 07:35 Lipase 26 units/L (13-60) 09/10/21 13:05 Urine Color Yellow (Yellow) 09/10/21 06:00 Urine Turbidity Clear (Clear) 09/10/21 06:00 Urine pH 5.0 (5.0-7.0) 09/10/21 06:00 Ur Specific [place] 1.016 (1.003-1.030) 09/10/21 06:00 Urine Protein 30 mg/dl mg/dL (Negative) 09/10/21 06:00 Urine Glucose (UA) Neg mg/dL (Negative) 09/10/21 06:00 Urine Ketones Neg mg/dL (Negative) 09/10/21 06:00 Urine Blood Neg (Negative) 09/10/21 06:00 Urine Nitrite Neg (Negative) 09/10/21 06:00 Urine Bilirubin Neg (Negative) 09/10/21 06:00 Urine Urobilinogen < 2.0 mg/dL (<2.0) 09/10/21 06:00 Ur Leukocyte Esterase Tr (Negative) 09/10/21 06:00 Urine WBC (Auto) 4.0 /HPF (0.0-6.0) 09/10/21 06:00 Urine RBC (Auto) 1.0 /HPF (0.0-6.0) 09/10/21 06:00 U Epithel Cells (Auto) 4.0 /HPF (0-13.0) 09/10/21 06:00 Urine Bacteria (Auto) 1+ /HPF (Negative) 09/10/21 06:00 Urine Mucus Few /HPF 09/10/21 06:00 Microbiology: Microbiology 09/10/21 15:34 Peripheral/Venous Blood Culture - Preliminary NO GROWTH AFTER 48 HOURS 09/10/21 15:34 Peripheral/Venous Blood Culture - Preliminary NO GROWTH AFTER 48 HOURS [place]/IV: Voiding Method Toilet Active Medications - Current Medications Current Medications: Generic Name Dose Route Start Last Admin Trade Name Freq PRN Reason Stop Dose Admin Acetaminophen 650 mg 09/10/21 15:37 09/12/21 12:08 Acetaminophen 325 Mg Tab PO 650 mg Q4H PRN Administration Pain MILD(1-3)/Fever >100.5/SANDERS Albuterol 2.5 mg 09/10/21 15:37 Albuterol 2.5 Mg/3 Ml Nebu IH Q4HRT PRN Shortness Of Breath Bupropion HCl 150 mg 09/12/21 18:00 09/13/21 10:01 Bupropion 100 Mg Tab PO 150 mg DAILY KURT Administration Diphenhydramine HCl 25 mg 09/11/21 07:10 09/11/21 07:34 Diphenhydramine 50 Mg/Ml Vial IV 25 mg Q6H PRN Administration Itching Fluoxetine HCl 20 mg 09/13/21 10:00 09/13/21 10:01 Fluoxetine 20 Mg Cap PO 20 mg QDAY KURT Administration Hydromorphone HCl 0.5 mg 09/11/21 15:17 09/13/21 10:17 Hydromorphone 0.5 Mg/0.5 Ml Inj IV 0.5 mg Q4H PRN Administration Pain , Severe (7-10) Sodium Chloride 1,000 mls @ 75 mls/hr 09/11/21 12:30 09/13/21 06:02 Nacl 0.9% 1000 Ml IV 75 mls/hr DIRECT KURT Administration Levofloxacin/Dextrose 750 mg in 150 mls @ 100 mls/hr 09/12/21 16:30 09/13/21 16:53 Levaquin 750mg/150ml IV 100 mls/hr Q24H KURT Administration Protocol Metronidazole 500 mg in 100 mls @ 100 mls/hr 09/12/21 16:00 09/13/21 16:03 Flagyl 500 Mg/100 Ml IV 100 mls/hr Q8H KUTR Administration Protocol Ketorolac Tromethamine 15 mg 09/11/21 20:00 09/13/21 14:10 Ketorolac 30 Mg/1 Ml Inj IV 09/16/21 19:59 15 mg Q6H KURT Administration Loratadine/Pseudoephedrine Sulfate 1 each 09/11/21 16:00 09/13/21 10:03 Loratadine/Pseudoephedrine 10-240 Mg Tab 24hr PO 1 each Q24HR KURT Administration Metoclopramide HCl 10 mg 09/12/21 14:19 09/12/21 15:59 Metoclopramide 10 Mg/2 Ml Inj IV 10 mg Q6H PRN Administration Nausea And Vomiting Montelukast Sodium 10 mg 09/12/21 22:00 09/12/21 22:45 Montelukast 10 Mg Tab PO 10 mg HS KURT Administration Morphine Sulfate 2 mg 09/13/21 12:49 Morphine 2 Mg/1 Ml Inj IV Q4H PRN Pain , Severe (7-10) Ondansetron HCl 4 mg 09/10/21 15:37 09/12/21 08:23 Ondansetron 4 Mg/2 Ml Inj IV 4 mg Q8H PRN Administration Nausea And Vomiting Oxycodone/Acetaminophen 2 tab 09/13/21 12:48 Oxycodone /Acetaminophen 5-325mg Tab PO Q6H PRN Pain, Moderate (4-6) Simethicone 80 mg 09/13/21 14:46 09/13/21 14:56 Simethicone 80 Mg Chew Tab PO 80 mg Q6H PRN Administration Gas pain Sodium Chloride 10 ml 09/10/21 22:00 09/13/21 10:01 Sodium Chloride 0.9% 10 Ml Flush Syringe IV 10 ml BID KURT Administration Sodium Chloride 10 ml 09/10/21 15:37 Sodium Chloride 0.9% 10 Ml Flush Syringe IV PRN PRN LINE FLUSH
[2021-09-13] MEDS: MORPHINE 2 MG/1 ML INJ IV PRN (22:06)
[2021-09-13] MEDS: MONTELUKAST 10 MG TAB PO SCH (22:06)
[2021-09-14] MEDS: HYDROmorphone 0.5 MG/0.5 ML INJ IV PRN ×3 (00:30→09:53)
[2021-09-14] MEDS: diphenhydrAMINE 50 MG/ML VIAL IV PRN ×3 (00:31→14:08)
[2021-09-14] MEDS: metroNIDAZOLE/NS 500 MG/100 ML 500 MG/100 ML BAG IV SCH ×3 (00:35→16:49)
[2021-09-14] MEDS: SODIUM CHLORIDE 0.9% 1000 ML 1,000 ML IV SCH (00:37)
[2021-09-14] MEDS: KETOROLAC 30 MG/1 ML INJ IV SCH ×4 (02:52→21:16)
[2021-09-14] MEDS: buPROPion 100 MG TAB PO SCH (09:52)
[2021-09-14] MEDS: FLUoxetine 20 MG CAP PO SCH (09:52)
[2021-09-14] MEDS: LORATADINE/PSEUDOEPHEDRINE 10-240 MG TAB 24HR PO SCH (10:14)
--- NOTE | 2021-09-14 14:03 | Progress Note ---
Assessment and Plan Postop day #4 status post laparoscopic appendectomy for perforated appendicitis. Patient is febrile episodically and stable with decreasing leukocytosis. Patient has some postop ileus as expected due to significant inflammation. Patient is showing signs of return of bowel function. Will advance to full liquid diet and oral pain medication. If patient continues to progress well can plan for tentative discharge tomorrow. Subjective Date of service: 09/14/21 Narrative: no acute events overnight. Pt says that her pain is overall a bit better but sometimes gets worse and requires meds. She says she has a lot of gas pain but is passing flatus. Tolerating full liquids Objective Vital Signs - 12hr 09/14/21 09/14/21 09/14/21 02:43 06:42 09:15 Temperature 98.0 F Pulse Rate 76 Respiratory 16 20 18 Rate Blood Pressure 152/71 O2 Sat by Pulse 99 91 99 Oximetry 09/14/21 09/14/21 10:00 10:57 Temperature 98.8 F Pulse Rate 76 Respiratory 16 Rate Blood Pressure 157/79 O2 Sat by Pulse 99 90 Oximetry - General physical appearance well developed, no distress, no pain, obese - ENT no hearing loss - Respiratory normal expansion, normal respiratory effort - Abdomen soft, other (incisions c/d/i, appropriately tender to palpation, TREY drain serous) - Labs 09/13/21 06:05 09/11/21 05:19
[2021-09-14] MEDS: SIMETHICONE 80 MG CHEW TAB PO PRN (16:49)
--- NOTE | 2021-09-14 17:26 | Progress Note ---
Assessment and Plan Assessment and plan: 56 YO Female with Obesity, DM, Endometriosis presented to the hospital with 1 day duration of abdominal pain. Patient underwent CT scan of the abdomen pelvis and was found to have evidence of acute appendicitis complicated by systemic inflammatory response syndrome. Surgery team consulted. Patient taken to operating room as per surgical team and found to have perforated appendix with purulent discharge. 09/11: Status post appendectomy yesterday, surgery following, continue empiric antibiotics. Discharge planning per surgery recommendation continue supportive care. Start on clear liquid diet, patient spiking fever -continue Zosyn 09/12: Patient continued to have low-grade fever, continue with Zosyn, follow culture. Continue clear liquid diet for now will advance diet per surgery recommendation. 56 YO Female with Obesity, DM, Endometriosis presented to the hospital with 1 day duration of abdominal pain. Patient underwent CT scan of the abdomen pelvis and was found to have evidence of acute appendicitis complicated by systemic inflammatory response syndrome. Surgery team consulted. Patient taken to operating room as per surgical team and found to have perforated appendix with purulent discharge. 09/11: Status post appendectomy yesterday, surgery following, continue empiric antibiotics. Discharge planning per surgery recommendation continue supportive care. Start on clear liquid diet, patient spiking fever -continue Zosyn 09/12: Patient continued to have low-grade fever, continue with Zosyn, follow culture. Continue clear liquid diet for now will advance diet per surgery recommendation. 09/13; patient is afebrile this morning, tolerating clear liquids, surgery advance diet to full liquids, increase ambulation 09/14; postop day 4, tolerating full liquid diet passed flatus, no bowel movement Increase ambulation, advance diet as tolerated, management per surgery Assessment and plan: --Acute appendicitis with perforation s/p laparoscopic appendectomy Continue postop care, tolerating clear liquids On full liquid diet, advance as tolerated Increase ambulation -- SIRS -likely due to acute appendicitis with perforation and peritonitis Status post laparoscopic appendectomy, continue postop care Advance diet as tolerated, surgery following Continue antibiotics, follow cultures, supportive care --Fluid in endometrial cavity 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 Patient has history of endometriosis and undergone prior work-up by her silver lap machine tender. Recommend outpatient transvaginal ultrasound as per silver lap machine tender. --Obesity hypoventilation syndrome Diet modification, exercise as tolerated and weight reduction Oxygen evaluation, CPAP BiPAP if needed Outpatient sleep study to rule out obstructive sleep apnea Outpatient pulmonary follow-up -- Metabolic syndrome Diet modification exercise as tolerated and weight reduction When medically stable -- Type II diabetes Accu-Cheks sliding scale coverage ADA diet Long-acting insulin as needed Avoid hypoglycemia Diabetic education and diabetic diet education --DVT prophylaxis SCD to bilateral lower extremities while in bed --Advance care planning Disease education data, care plan discussed, diagnoses discussed, prognosis discussed, patient is full code. Patient knowledges understanding and agreement with care plan, +30 minutes. --Preventive health care Patient counseled on rate reduction, risk factor reduction for cardiovascular disease, increase physical activity at discharge, meal planning, patient instructed to follow-up with primary care physician for all age and risk factor appropriate screening tests. We will closely monitor the patient and adjust management as needed Plan of care reviewed with the patient and her nurse Follow surgery recommendations Discharge planning per case management Possible discharge in 1 to 2 days if stable History Interval history: I have seen and examined the patient at the bedside patient's chart and medications reviewed Postoperative day 4 patient Patient feels slightly better, Denies nausea vomiting has passed flatus No bowel movements, Complains of mild pain in the abdomen On full liquids, tolerating well Vital signs noted Hospitalist Physical - Constitutional Vitals: Temp Pulse Resp BP Pulse Ox 98.8 F 76 18 157/79 90 09/14/21 10:57 09/14/21 10:57 09/14/21 16:49 09/14/21 10:57 09/14/21 10:57 General appearance: Present: no acute distress, well-nourished, obese - EENT Eyes: Present: PERRL, EOM intact - Neck Neck: Present: supple, normal ROM - Respiratory Respiratory effort: normal Respiratory: bilateral: diminished, negative: rales, rhonchi, wheezing - Cardiovascular Rhythm: regular Heart Sounds: Present: S1 & S2 - Extremities Extremities: no ischemia, No edema - Abdominal General gastrointestinal: soft, non-tender, non-distended, hypoactive bowel sounds - Integumentary Integumentary: Present: clear, warm - Psychiatric Psychiatric: appropriate mood/affect, cooperative - Neurologic Neurologic: CNII-XII intact, moves all extremities Results - Labs CBC & Chem 7: 09/13/21 06:05 09/11/21 05:19 Labs: Laboratory Last Values WBC 5.4 K/mm3 (4.5-11.0) 09/13/21 06:05 RBC 4.37 M/mm3 (3.65-5.03) 09/13/21 06:05 Hgb 11.5 gm/dl (10.1-14.3) 09/13/21 06:05 Hct 34.5 % (30.3-42.9) 09/13/21 06:05 MCV 79 fl (79-97) 09/13/21 06:05 MCH 26 pg (28-32) L 09/13/21 06:05 MCHC 33 % (30-34) 09/13/21 06:05 RDW 14.0 % (13.2-15.2) 09/13/21 06:05 Plt Count 169 K/mm3 (140-440) 09/13/21 06:05 Lymph % (Auto) 6.9 % (13.4-35.0) L 09/13/21 06:05 [place] % (Auto) 10.0 % (0.0-7.3) H 09/13/21 06:05 Eos % (Auto) 1.4 % (0.0-4.3) 09/13/21 06:05 Baso % (Auto) 0.5 % (0.0-1.8) 09/13/21 06:05 Lymph # (Auto) 0.4 K/mm3 (1.2-5.4) L 09/13/21 06:05 [place] # (Auto) 0.5 K/mm3 (0.0-0.8) 09/13/21 06:05 Eos # (Auto) 0.1 K/mm3 (0.0-0.4) 09/13/21 06:05 Baso # (Auto) 0.0 K/mm3 (0.0-0.1) 09/13/21 06:05 Seg Neutrophils % 81.2 % (40.0-70.0) H 09/13/21 06:05 Seg Neutrophils # 4.4 K/mm3 (1.8-7.7) 09/13/21 06:05 Sodium 138 mmol/L (137-145) 09/11/21 05:19 Potassium 4.0 mmol/L (3.6-5.0) 09/11/21 05:19 Chloride 107.3 mmol/L (98-107) H 09/11/21 05:19 Carbon Dioxide 23 mmol/L (22-30) 09/11/21 05:19 Anion Gap 12 mmol/L 09/11/21 05:19 BUN 12 mg/dL (7-17) 09/11/21 05:19 Creatinine 0.7 mg/dL (0.6-1.2) 09/11/21 05:19 Estimated GFR > 60 ml/min 09/11/21 05:19 BUN/Creatinine Ratio 17 % 09/11/21 05:19 Glucose 143 mg/dL (65-100) H 09/11/21 05:19 POC Glucose 89 mg/dL (70-105) 09/14/21 16:44 Lactic Acid 1.00 mmol/L (0.7-2.0) 09/10/21 15:34 Calcium 8.4 mg/dL (8.4-10.2) 09/11/21 05:19 Total Bilirubin 0.40 mg/dL (0.1-1.2) 09/10/21 07:35 AST 15 units/L (5-40) 09/10/21 07:35 ALT 18 units/L (7-56) 09/10/21 07:35 Alkaline Phosphatase 70 units/L (35-129) 09/10/21 07:35 Total Protein 7.7 g/dL (6.3-8.2) 09/10/21 07:35 Albumin 4.7 g/dL (3.9-5) 09/10/21 07:35 Albumin/Globulin Ratio 1.6 % 09/10/21 07:35 Lipase 26 units/L (13-60) 09/10/21 13:05 Urine Color Yellow (Yellow) 09/10/21 06:00 Urine Turbidity Clear (Clear) 09/10/21 06:00 Urine pH 5.0 (5.0-7.0) 09/10/21 06:00 Ur Specific [place] 1.016 (1.003-1.030) 09/10/21 06:00 Urine Protein 30 mg/dl mg/dL (Negative) 09/10/21 06:00 Urine Glucose (UA) Neg mg/dL (Negative) 09/10/21 06:00 Urine Ketones Neg mg/dL (Negative) 09/10/21 06:00 Urine Blood Neg (Negative) 09/10/21 06:00 Urine Nitrite Neg (Negative) 09/10/21 06:00 Urine Bilirubin Neg (Negative) 09/10/21 06:00 Urine Urobilinogen < 2.0 mg/dL (<2.0) 09/10/21 06:00 Ur Leukocyte Esterase Tr (Negative) 09/10/21 06:00 Urine WBC (Auto) 4.0 /HPF (0.0-6.0) 09/10/21 06:00 Urine RBC (Auto) 1.0 /HPF (0.0-6.0) 09/10/21 06:00 U Epithel Cells (Auto) 4.0 /HPF (0-13.0) 09/10/21 06:00 Urine Bacteria (Auto) 1+ /HPF (Negative) 09/10/21 06:00 Urine Mucus Few /HPF 09/10/21 06:00 Microbiology: Microbiology 09/10/21 15:34 Peripheral/Venous Blood Culture - Preliminary NO GROWTH AFTER 72 HOURS 09/10/21 15:34 Peripheral/Venous Blood Culture - Preliminary NO GROWTH AFTER 72 HOURS [place]/IV: Voiding Method Toilet Active Medications - Current Medications Current Medications: Generic Name Dose Route Start Last Admin Trade Name Freq PRN Reason Stop Dose Admin Acetaminophen 650 mg 09/10/21 15:37 09/12/21 12:08 Acetaminophen 325 Mg Tab PO 650 mg Q4H PRN Administration Pain MILD(1-3)/Fever >100.5/SANDERS Albuterol 2.5 mg 09/10/21 15:37 Albuterol 2.5 Mg/3 Ml Nebu IH Q4HRT PRN Shortness Of Breath Bupropion HCl 150 mg 09/12/21 18:00 09/14/21 09:52 Bupropion 100 Mg Tab PO 150 mg DAILY KURT Administration Diphenhydramine HCl 25 mg 09/11/21 07:10 09/14/21 14:08 Diphenhydramine 50 Mg/Ml Vial IV 25 mg Q6H PRN Administration Itching Fluoxetine HCl 20 mg 09/13/21 10:00 09/14/21 09:52 Fluoxetine 20 Mg Cap PO 20 mg QDAY KURT Administration Hydromorphone HCl 0.5 mg 09/11/21 15:17 09/14/21 09:53 Hydromorphone 0.5 Mg/0.5 Ml Inj IV 0.5 mg Q4H PRN Administration Pain , Severe (7-10) Sodium Chloride 1,000 mls @ 75 mls/hr 09/11/21 12:30 09/14/21 00:37 Nacl 0.9% 1000 Ml IV 75 mls/hr DIRECT KURT Administration Levofloxacin/Dextrose 750 mg in 150 mls @ 100 mls/hr 09/12/21 16:30 09/14/21 16:49 Levaquin 750mg/150ml IV 100 mls/hr Q24H KURT Administration Protocol Metronidazole 500 mg in 100 mls @ 100 mls/hr 09/12/21 16:00 09/14/21 16:49 Flagyl 500 Mg/100 Ml IV 100 mls/hr Q8H KURT Administration Protocol Ketorolac Tromethamine 15 mg 09/11/21 20:00 09/14/21 14:08 Ketorolac 30 Mg/1 Ml Inj IV 09/16/21 19:59 15 mg Q6H KURT Administration Loratadine/Pseudoephedrine Sulfate 1 each 09/11/21 16:00 09/14/21 10:14 Loratadine/Pseudoephedrine 10-240 Mg Tab 24hr PO 1 each Q24HR KURT Administration Metoclopramide HCl 10 mg 09/12/21 14:19 09/12/21 15:59 Metoclopramide 10 Mg/2 Ml Inj IV 10 mg Q6H PRN Administration Nausea And Vomiting Montelukast Sodium 10 mg 09/12/21 22:00 09/13/21 22:06 Montelukast 10 Mg Tab PO 10 mg HS KURT Administration Morphine Sulfate 2 mg 09/13/21 12:49 09/13/21 22:06 Morphine 2 Mg/1 Ml Inj IV 2 mg Q4H PRN Administration Pain , Severe (7-10) Ondansetron HCl 4 mg 09/10/21 15:37 09/12/21 08:23 Ondansetron 4 Mg/2 Ml Inj IV 4 mg Q8H PRN Administration Nausea And Vomiting Oxycodone/Acetaminophen 2 tab 09/13/21 12:48 09/14/21 16:49 Oxycodone /Acetaminophen 5-325mg Tab PO 2 tab Q6H PRN Administration Pain, Moderate (4-6) Simethicone 80 mg 09/13/21 14:46 09/14/21 16:49 Simethicone 80 Mg Chew Tab PO 80 mg Q6H PRN Administration Gas pain Sodium Chloride 10 ml 09/10/21 22:00 09/14/21 09:53 Sodium Chloride 0.9% 10 Ml Flush Syringe IV 10 ml BID KURT Administration Sodium Chloride 10 ml 09/10/21 15:37 Sodium Chloride 0.9% 10 Ml Flush Syringe IV PRN PRN LINE FLUSH
[2021-09-14] MEDS: ONDANSETRON 4 MG/2 ML INJ IV PRN (21:16)
[2021-09-14] MEDS: MONTELUKAST 10 MG TAB PO SCH (21:17)
[2021-09-14] MEDS: METOCLOPRAMIDE 10 MG/2 ML INJ IV PRN (23:57)
[2021-09-15] MEDS: metroNIDAZOLE/NS 500 MG/100 ML 500 MG/100 ML BAG IV SCH ×3 (00:19→15:59)
[2021-09-15] MEDS: SIMETHICONE 80 MG CHEW TAB PO PRN (00:19)
[2021-09-15] MEDS: KETOROLAC 30 MG/1 ML INJ IV SCH ×4 (02:31→20:15)
[2021-09-15] MEDS: SODIUM CHLORIDE 0.9% 1000 ML 1,000 ML IV SCH ×2 (02:31→15:59)
[2021-09-15] MEDS: ONDANSETRON 4 MG/2 ML INJ IV PRN (04:48)
[2021-09-15] MEDS: PROMETHAZINE 12.5 MG/10 ML ORAL LIQD PO PRN ×2 (05:55→20:47)
[2021-09-15] MEDS ORDERED: PROMETHAZINE 12.5 MG RECT SUPP PR PRN (05:57)
--- NOTE | 2021-09-15 09:10 | Progress Note ---
Assessment and Plan Assessment and plan: 56 YO Female with Obesity, DM, Endometriosis presented to the hospital with 1 day duration of abdominal pain. Patient underwent CT scan of the abdomen pelvis and was found to have evidence of acute appendicitis complicated by systemic inflammatory response syndrome. Surgery team consulted. Patient taken to operating room as per surgical team and found to have perforated appendix with purulent discharge. 09/11: Status post appendectomy yesterday, surgery following, continue empiric antibiotics. Discharge planning per surgery recommendation continue supportive care. Start on clear liquid diet, patient spiking fever -continue Zosyn 09/12: Patient continued to have low-grade fever, continue with Zosyn, follow culture. Continue clear liquid diet for now will advance diet per surgery recommendation. 56 YO Female with Obesity, DM, Endometriosis presented to the hospital with 1 day duration of abdominal pain. Patient underwent CT scan of the abdomen pelvis and was found to have evidence of acute appendicitis complicated by systemic inflammatory response syndrome. Surgery team consulted. Patient taken to operating room as per surgical team and found to have perforated appendix with purulent discharge. 09/11: Status post appendectomy yesterday, surgery following, continue empiric antibiotics. Discharge planning per surgery recommendation continue supportive care. Start on clear liquid diet, patient spiking fever -continue Zosyn 09/12: Patient continued to have low-grade fever, continue with Zosyn, follow culture. Continue clear liquid diet for now will advance diet per surgery recommendation. 09/13; patient is afebrile this morning, tolerating clear liquids, surgery advance diet to full liquids, increase ambulation 09/14; postop day 4, tolerating full liquid diet passed flatus, no bowel movement Increase ambulation, advance diet as tolerated, management per surgery 09/15; patient has intractable nausea vomiting, follow-up abdominal x-ray showed mild ileus versus obstruction Patient is n.p.o. status except for ice chips, surgery following Assessment and plan: --Intractable nausea vomiting mild postop ileus on x-ray abdomen Antiemetics, ice chips, serial x-ray abdomen Postop care per surgeon --Acute appendicitis with perforation s/p laparoscopic appendectomy Continue postop care, tolerating clear liquids On full liquid diet, advance as tolerated Increase ambulation -- SIRS -likely due to acute appendicitis with perforation and peritonitis Status post laparoscopic appendectomy, continue postop care Advance diet as tolerated, surgery following Continue antibiotics, follow cultures, supportive care --Fluid in endometrial cavity Outpatient [id number] follow-up. 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 Recommend outpatient transvaginal ultrasound as per supervisor customer complaint service. --Obesity hypoventilation syndrome Diet modification, exercise as tolerated and weight reduction Oxygen evaluation, CPAP BiPAP if needed Outpatient sleep study to rule out obstructive sleep apnea Outpatient pulmonary follow-up -- Metabolic syndrome Diet modification exercise as tolerated and weight reduction When medically stable -- Type II diabetes Accu-Cheks sliding scale coverage ADA diet Long-acting insulin as needed Avoid hypoglycemia Diabetic education and diabetic diet education --DVT prophylaxis SCD to bilateral lower extremities while in bed --Advance care planning Disease education data, care plan discussed, diagnoses discussed, prognosis discussed, patient is full code. Patient knowledges understanding and agreement with care plan, +30 minutes. --Preventive health care Patient counseled on rate reduction, risk factor reduction for cardiovascular disease, increase physical activity at discharge, meal planning, patient instructed to follow-up with primary care physician for all age and risk factor appropriate screening tests. Closely monitor the patient and adjust management as needed Plan of care reviewed with the patient and her nurse Postop care per surgeon DC planning per case management when patient is stable Possible discharge in 1 to 2 days if stable History Interval history: Follow-up abdominal x-ray today 09/15/2021; Mildly dilated small bowel loops have increased can correlate for ileus versus obstruction I have seen and examined the patient at the bedside today Patient's chart and medications reviewed. Patient had severe abdominal discomfort and intractable nausea vomiting since last night, able to pass gas but no bowel movement. Patient in mild distress Vital signs reviewed Hospitalist Physical - Constitutional Vitals: Temp Pulse Resp BP Pulse Ox 98.5 F 84 20 153/88 100 09/15/21 04:47 09/15/21 04:47 09/15/21 04:47 09/15/21 04:47 09/15/21 07:47 General appearance: Present: no acute distress, well-nourished, obese - EENT Eyes: Present: PERRL, EOM intact - Neck Neck: Present: supple, normal ROM - Respiratory Respiratory effort: normal Respiratory: bilateral: diminished, negative: rales, rhonchi, wheezing - Cardiovascular Rhythm: regular Heart Sounds: Present: S1 & S2 - Extremities Extremities: no ischemia, No edema - Abdominal General gastrointestinal: soft, non-tender, non-distended, normal bowel sounds - Integumentary Integumentary: Present: clear, warm - Psychiatric Psychiatric: appropriate mood/affect, cooperative - Neurologic Neurologic: CNII-XII intact, moves all extremities Results - Labs CBC & Chem 7: 09/15/21 15:19 09/11/21 05:19 Labs: Laboratory Last Values WBC 5.4 K/mm3 (4.5-11.0) 09/13/21 06:05 RBC 4.37 M/mm3 (3.65-5.03) 09/13/21 06:05 Hgb 11.5 gm/dl (10.1-14.3) 09/13/21 06:05 Hct 34.5 % (30.3-42.9) 09/13/21 06:05 MCV 79 fl (79-97) 09/13/21 06:05 MCH 26 pg (28-32) L 09/13/21 06:05 MCHC 33 % (30-34) 09/13/21 06:05 RDW 14.0 % (13.2-15.2) 09/13/21 06:05 Plt Count 169 K/mm3 (140-440) 09/13/21 06:05 Lymph % (Auto) 6.9 % (13.4-35.0) L 09/13/21 06:05 [place] % (Auto) 10.0 % (0.0-7.3) H 09/13/21 06:05 Eos % (Auto) 1.4 % (0.0-4.3) 09/13/21 06:05 Baso % (Auto) 0.5 % (0.0-1.8) 09/13/21 06:05 Lymph # (Auto) 0.4 K/mm3 (1.2-5.4) L 09/13/21 06:05 [place] # (Auto) 0.5 K/mm3 (0.0-0.8) 09/13/21 06:05 Eos # (Auto) 0.1 K/mm3 (0.0-0.4) 09/13/21 06:05 Baso # (Auto) 0.0 K/mm3 (0.0-0.1) 09/13/21 06:05 Seg Neutrophils % 81.2 % (40.0-70.0) H 09/13/21 06:05 Seg Neutrophils # 4.4 K/mm3 (1.8-7.7) 09/13/21 06:05 Sodium 138 mmol/L (137-145) 09/11/21 05:19 Potassium 4.0 mmol/L (3.6-5.0) 09/11/21 05:19 Chloride 107.3 mmol/L (98-107) H 09/11/21 05:19 Carbon Dioxide 23 mmol/L (22-30) 09/11/21 05:19 Anion Gap 12 mmol/L 09/11/21 05:19 BUN 12 mg/dL (7-17) 09/11/21 05:19 Creatinine 0.7 mg/dL (0.6-1.2) 09/11/21 05:19 Estimated GFR > 60 ml/min 09/11/21 05:19 BUN/Creatinine Ratio 17 % 09/11/21 05:19 Glucose 143 mg/dL (65-100) H 09/11/21 05:19 POC Glucose 119 mg/dL (70-105) H 09/15/21 07:13 Lactic Acid 1.00 mmol/L (0.7-2.0) 09/10/21 15:34 Calcium 8.4 mg/dL (8.4-10.2) 09/11/21 05:19 Total Bilirubin 0.40 mg/dL (0.1-1.2) 09/10/21 07:35 AST 15 units/L (5-40) 09/10/21 07:35 ALT 18 units/L (7-56) 09/10/21 07:35 Alkaline Phosphatase 70 units/L (35-129) 09/10/21 07:35 Total Protein 7.7 g/dL (6.3-8.2) 09/10/21 07:35 Albumin 4.7 g/dL (3.9-5) 09/10/21 07:35 Albumin/Globulin Ratio 1.6 % 09/10/21 07:35 Lipase 26 units/L (13-60) 09/10/21 13:05 Urine Color Yellow (Yellow) 09/10/21 06:00 Urine Turbidity Clear (Clear) 09/10/21 06:00 Urine pH 5.0 (5.0-7.0) 09/10/21 06:00 Ur Specific [place] 1.016 (1.003-1.030) 09/10/21 06:00 Urine Protein 30 mg/dl mg/dL (Negative) 09/10/21 06:00 Urine Glucose (UA) Neg mg/dL (Negative) 09/10/21 06:00 Urine Ketones Neg mg/dL (Negative) 09/10/21 06:00 Urine Blood Neg (Negative) 09/10/21 06:00 Urine Nitrite Neg (Negative) 09/10/21 06:00 Urine Bilirubin Neg (Negative) 09/10/21 06:00 Urine Urobilinogen < 2.0 mg/dL (<2.0) 09/10/21 06:00 Ur Leukocyte Esterase Tr (Negative) 09/10/21 06:00 Urine WBC (Auto) 4.0 /HPF (0.0-6.0) 09/10/21 06:00 Urine RBC (Auto) 1.0 /HPF (0.0-6.0) 09/10/21 06:00 U Epithel Cells (Auto) 4.0 /HPF (0-13.0) 09/10/21 06:00 Urine Bacteria (Auto) 1+ /HPF (Negative) 09/10/21 06:00 Urine Mucus Few /HPF 09/10/21 06:00 Microbiology: Microbiology 09/10/21 15:34 Peripheral/Venous Blood Culture - Preliminary NO GROWTH AFTER 4 DAYS 09/10/21 15:34 Peripheral/Venous Blood Culture - Preliminary NO GROWTH AFTER 4 DAYS [place]/IV: Voiding Method Toilet Active Medications - Current Medications Current Medications: Generic Name Dose Route Start Last Admin Trade Name Freq PRN Reason Stop Dose Admin Acetaminophen 650 mg 09/10/21 15:37 09/12/21 12:08 Acetaminophen 325 Mg Tab PO 650 mg Q4H PRN Administration Pain MILD(1-3)/Fever >100.5/SANDERS Albuterol 2.5 mg 09/10/21 15:37 Albuterol 2.5 Mg/3 Ml Nebu IH Q4HRT PRN Shortness Of Breath Bupropion HCl 150 mg 09/12/21 18:00 09/14/21 09:52 Bupropion 100 Mg Tab PO 150 mg DAILY KURT Administration Diphenhydramine HCl 25 mg 09/11/21 07:10 09/14/21 14:08 Diphenhydramine 50 Mg/Ml Vial IV 25 mg Q6H PRN Administration Itching Fluoxetine HCl 20 mg 09/13/21 10:00 09/14/21 09:52 Fluoxetine 20 Mg Cap PO 20 mg QDAY KURT Administration Hydromorphone HCl 0.5 mg 09/11/21 15:17 09/14/21 09:53 Hydromorphone 0.5 Mg/0.5 Ml Inj IV 0.5 mg Q4H PRN Administration Pain , Severe (7-10) Sodium Chloride 1,000 mls @ 75 mls/hr 09/11/21 12:30 09/15/21 02:31 Nacl 0.9% 1000 Ml IV 75 mls/hr DIRECT KURT Administration Levofloxacin/Dextrose 750 mg in 150 mls @ 100 mls/hr 09/12/21 16:30 09/14/21 16:49 Levaquin 750mg/150ml IV 100 mls/hr Q24H KURT Administration Protocol Metronidazole 500 mg in 100 mls @ 100 mls/hr 09/12/21 16:00 09/15/21 00:19 Flagyl 500 Mg/100 Ml IV 100 mls/hr Q8H KURT Administration Protocol Ketorolac Tromethamine 15 mg 09/11/21 20:00 09/15/21 08:16 Ketorolac 30 Mg/1 Ml Inj IV 09/16/21 19:59 15 mg Q6H KURT Administration Loratadine/Pseudoephedrine Sulfate 1 each 09/11/21 16:00 09/14/21 10:14 Loratadine/Pseudoephedrine 10-240 Mg Tab 24hr PO 1 each Q24HR KURT Administration Metoclopramide HCl 10 mg 09/12/21 14:19 09/14/21 23:57 Metoclopramide 10 Mg/2 Ml Inj IV 10 mg Q6H PRN Administration Nausea And Vomiting Montelukast Sodium 10 mg 09/12/21 22:00 09/14/21 21:17 Montelukast 10 Mg Tab PO 10 mg HS KURT Administration Morphine Sulfate 2 mg 09/13/21 12:49 09/13/21 22:06 Morphine 2 Mg/1 Ml Inj IV 2 mg Q4H PRN Administration Pain , Severe (7-10) Ondansetron HCl 4 mg 09/10/21 15:37 09/15/21 04:48 Ondansetron 4 Mg/2 Ml Inj IV 4 mg Q8H PRN Administration Nausea And Vomiting Oxycodone/Acetaminophen 2 tab 09/13/21 12:48 09/14/21 16:49 Oxycodone /Acetaminophen 5-325mg Tab PO 2 tab Q6H PRN Administration Pain, Moderate (4-6) Promethazine HCl 12.5 mg 09/15/21 04:59 Promethazine 12.5 Mg/10 Ml Oral Liqd PO Q6H PRN Nausea And Vomiting Promethazine HCl 12.5 mg 09/15/21 05:57 Promethazine 12.5 Mg Rect Supp NV Q6H PRN Nausea And Vomiting Simethicone 80 mg 09/13/21 14:46 09/15/21 00:19 Simethicone 80 Mg Chew Tab PO 80 mg Q6H PRN Administration Gas pain Sodium Chloride 10 ml 09/10/21 22:00 09/14/21 21:17 Sodium Chloride 0.9% 10 Ml Flush Syringe IV 10 ml BID KURT Administration Sodium Chloride 10 ml 09/10/21 15:37 Sodium Chloride 0.9% 10 Ml Flush Syringe IV PRN PRN LINE FLUSH
[2021-09-15] MEDS: FLUoxetine 20 MG CAP PO SCH (10:25)
[2021-09-15] MEDS: buPROPion 100 MG TAB PO SCH (10:26)
[2021-09-15] MEDS: LORATADINE/PSEUDOEPHEDRINE 10-240 MG TAB 24HR PO SCH (10:59)
--- NOTE | 2021-09-15 12:44 | XRay Report ---
XR abdomen 1V ap INDICATION / CLINICAL INFORMATION: persistent nausea. COMPARISON: X-ray 09/11/2021 FINDINGS: TUBES / LINES: None. BOWEL GAS PATTERN: Mildly dilated small bowel loops. Nonobstructive bowel gas pattern. FREE AIR / EXTRALUMINAL GAS: None seen. ADDITIONAL FINDINGS: Right lower quadrant drain, unchanged.. IMPRESSION: 1. Mildly dilated small bowel loops have increased, can correlate for ileus versus obstruction. Signer Name: Bandar Devine MD Signed: 09/15/2021 12:39 PM Workstation Name: [id number]
--- NOTE | 2021-09-15 13:19 | Progress Note ---
Assessment and Plan Postop day #5 status post laparoscopic appendectomy for perforated appendicitis. Patient is febrile episodically and stable with decreasing leukocytosis. Patient has some postop ileus as expected due to significant inflammation. Patient is showing signs of return of bowel function. Will make npo except for ice chips to help with nausea. continue antiemetics. PT consult ordered to help facilitate ambulation. encouraged pt to minimize narcotic use which can prolong ileus. Subjective Date of service: 09/15/21 Narrative: Pt says she has had several episodes of vomiting in the last 24 hours. She says she is still passing flatus but feels uncomfortable. She is not walking other than to the bathroom. She had an abdominal xray that showed dilated small bowel loops c/w ileus. Objective Vital Signs - 12hr 09/15/21 09/15/21 09/15/21 04:47 07:47 10:46 Temperature 98.5 F Pulse Rate 84 Respiratory 20 Rate Blood Pressure 153/88 O2 Sat by Pulse 96 100 95 Oximetry - General physical appearance well developed, no distress, no pain, obese - Eyes PERRL - ENT no hearing loss - Respiratory normal expansion, normal respiratory effort - Abdomen soft, distended, not guarding, other (incisions c/d/i, approopriatley tender to palpation, TREY drain serous) - Labs 09/13/21 06:05 09/11/21 05:19
[2021-09-15 16:23] LABS: Hematocrit 35.5 % (30.3-42.9); Hemoglobin 12.3 gm/dl (10.1-14.3); Mean Corpuscular HGB Conc 35 % (30-34); Mean Corpuscular Volume 78 fl (79-97); Platelet Count 225 K/mm3 (140-440); Red Blood Count 4.59 M/mm3 (3.65-5.03); Red Cell Distribution Width 14.3 % (13.2-15.2)
[2021-09-15 17:30] LABS: Basophils % (Manual) 0 % (0.0-1.8); Platelet Estimate Consistent w Auto; RBC Morphology Normal; Total Cells Counted 100
[2021-09-15] MEDS: METOCLOPRAMIDE 10 MG/2 ML INJ IV PRN (20:19)
[2021-09-15] MEDS: MONTELUKAST 10 MG TAB PO SCH (21:47)
[2021-09-16] MEDS: metroNIDAZOLE/NS 500 MG/100 ML 500 MG/100 ML BAG IV SCH ×3 (00:22→18:46)
[2021-09-16] MEDS: MORPHINE 2 MG/1 ML INJ IV PRN ×2 (00:24→21:09)
[2021-09-16] MEDS: KETOROLAC 30 MG/1 ML INJ IV SCH ×3 (02:27→15:48)
[2021-09-16] MEDS: METOCLOPRAMIDE 10 MG/2 ML INJ IV PRN (02:27)
[2021-09-16] MEDS: PROMETHAZINE 12.5 MG/10 ML ORAL LIQD PO PRN (02:47)
[2021-09-16] MEDS: SODIUM CHLORIDE 0.9% 1000 ML 1,000 ML IV SCH ×2 (05:41→18:52)
[2021-09-16 06:52] LABS: Hematocrit 36.1 % (30.3-42.9); Hemoglobin 12.1 gm/dl (10.1-14.3); Mean Corpuscular HGB Conc 34 % (30-34); Mean Corpuscular Volume 77 fl (79-97); Platelet Count 257 K/mm3 (140-440); Red Blood Count 4.67 M/mm3 (3.65-5.03)
[2021-09-16 07:05] LABS: BUN/Creatinine Ratio 16; Blood Urea Nitrogen 13 mg/dL (7-17); Calcium 8.8 mg/dL (8.4-10.2); Hemolysis Index 0
[2021-09-16 08:25] LABS: Band Neutrophils # (Manual) 0.4 K/mm3; Basophils % (Manual) 0 % (0.0-1.8); Eosinophils % (Manual) 0 % (0.0-4.3); RBC Morphology Normal; Total Cells Counted 100
[2021-09-16 08:26] LABS: Platelet Estimate Consistent w Auto
[2021-09-16] MEDS: FLUoxetine 20 MG CAP PO SCH (10:27)
[2021-09-16] MEDS: METOCLOPRAMIDE 10 MG/2 ML INJ IV SCH ×3 (10:28→21:09)
[2021-09-16] MEDS: buPROPion 100 MG TAB PO SCH (10:29)
--- NOTE | 2021-09-16 13:12 | Progress Note ---
Assessment and Plan Postop day #6 status post laparoscopic appendectomy for perforated appendicitis. Patient is febrile episodically and stable with decreasing leukocytosis. Patient has some postop ileus as expected due to significant inflammation. Patient is showing signs of return of bowel function. Will resume full liquids. If patient does well overnight hopefully can discharge tomorrow. Subjective Date of service: 09/16/21 Narrative: Pt says that her nausea has improved since yesterday and she has had two bowel movements. she says she wants to eat. She is ambulating more. Objective Vital Signs - 12hr 09/16/21 04:06 Temperature 98.8 F Pulse Rate 75 Respiratory 16 Rate Blood Pressure 177/74 O2 Sat by Pulse 94 Oximetry - General physical appearance well developed, no distress, no pain, other - Respiratory normal expansion, normal respiratory effort - Abdomen soft, distended, not guarding, other (Visions clean dry and intact, probably tender to palpation, TREY drain serous) - Labs 09/16/21 05:31 09/16/21 05:31 Diabetes panel 09/16/21 Range/Units 05:31 Sodium 142 (137-145) mmol/L Potassium 3.3 L (3.6-5.0) mmol/L Chloride 101.4 (98-107) mmol/L Carbon Dioxide 27 (22-30) mmol/L BUN 13 (7-17) mg/dL Creatinine 0.8 (0.6-1.2) mg/dL Glucose 92 (65-100) mg/dL Calcium 8.8 (8.4-10.2) mg/dL Calcium panel 09/16/21 Range/Units 05:31 Calcium 8.8 (8.4-10.2) mg/dL Phosphorus 3.70 (2.5-4.5) mg/dL Pituitary panel 09/16/21 Range/Units 05:31 Sodium 142 (137-145) mmol/L Potassium 3.3 L (3.6-5.0) mmol/L Chloride 101.4 (98-107) mmol/L Carbon Dioxide 27 (22-30) mmol/L BUN 13 (7-17) mg/dL Creatinine 0.8 (0.6-1.2) mg/dL Glucose 92 (65-100) mg/dL Calcium 8.8 (8.4-10.2) mg/dL Adrenal panel 09/16/21 Range/Units 05:31 Sodium 142 (137-145) mmol/L Potassium 3.3 L (3.6-5.0) mmol/L Chloride 101.4 (98-107) mmol/L Carbon Dioxide 27 (22-30) mmol/L BUN 13 (7-17) mg/dL Creatinine 0.8 (0.6-1.2) mg/dL Glucose 92 (65-100) mg/dL Calcium 8.8 (8.4-10.2) mg/dL
--- NOTE | 2021-09-16 13:41 | Progress Note ---
Assessment and Plan Assessment and plan: 56 YO Female with Obesity, DM, Endometriosis presented to the hospital with 1 day duration of abdominal pain. Patient underwent CT scan of the abdomen pelvis and was found to have evidence of acute appendicitis complicated by systemic inflammatory response syndrome. Surgery team consulted. Patient taken to operating room as per surgical team and found to have perforated appendix with purulent discharge. 09/11: Status post appendectomy yesterday, surgery following, continue empiric antibiotics. Discharge planning per surgery recommendation continue supportive care. Start on clear liquid diet, patient spiking fever -continue Zosyn 09/12: Patient continued to have low-grade fever, continue with Zosyn, follow culture. Continue clear liquid diet for now will advance diet per surgery recommendation. 56 YO Female with Obesity, DM, Endometriosis presented to the hospital with 1 day duration of abdominal pain. Patient underwent CT scan of the abdomen pelvis and was found to have evidence of acute appendicitis complicated by systemic inflammatory response syndrome. Surgery team consulted. Patient taken to operating room as per surgical team and found to have perforated appendix with purulent discharge. 09/11: Status post appendectomy yesterday, surgery following, continue empiric antibiotics. Discharge planning per surgery recommendation continue supportive care. Start on clear liquid diet, patient spiking fever -continue Zosyn 09/12: Patient continued to have low-grade fever, continue with Zosyn, follow culture. Continue clear liquid diet for now will advance diet per surgery recommendation. 09/13; patient is afebrile this morning, tolerating clear liquids, surgery advance diet to full liquids, increase ambulation 09/14; postop day 4, tolerating full liquid diet passed flatus, no bowel movement Increase ambulation, advance diet as tolerated, management per surgery 09/15; patient has intractable nausea vomiting, follow-up abdominal x-ray showed mild ileus versus obstruction Patient is n.p.o. status except for ice chips, surgery following 09/16: Patient had bowel movement and increase in flatus and belching. Transitioned to a full liquid diet. #Acute appendicitis with perforation -s/p laparoscopic appendectomy POD #6 -full liquid diet, advance as tolerated -patient encouraged to increase ambulation -continue IV abx -Surgery following, assistance appreciated #Intractable nausea & vomiting-resolved -mild postop ileus on x-ray abdomen -resume PO intake #SIRS -likely due to acute appendicitis with perforation and peritonitis- resolved -continue management as above #Fluid in endometrial cavity -history of endometriosis -will require outpatient [facility] follow-up #Obesity hypoventilation syndrome -Diet modification, exercise as tolerated and weight reduction -Outpatient sleep study to rule out obstructive sleep apnea #Obesity - Counseled patient on the importance of weight loss, incorporating exercise, and dietary changes (lean meats, fresh fruits and vegetables, and water intake). Patient expresses understanding. - Time: +15 min #Type II diabetes mellitus -continue Accu-Cheks & ADA diet -patient takes metformin at home; glucose controlled while inpatient without insulin -goal glucose 140-180 #DVT prophylaxis -continue SCD to bilateral lower extremities while in bed #Advanced care planning -Disease education data, care plan discussed, diagnoses discussed, prognosis discussed, patient is full code. Patient knowledges understanding and agreement with care plan, +30 minutes. #Discharge planning -plan to discharge tomorrow if patient tolerates PO diet overnight History Interval history: No acute vents overnight. Patient reports having 1 bowel movement and able to tolerate ice chips. She is also been passing flatus and belching. Currently has no abdominal pain at this time. She had 1 episode of vomitus this morning. Hospitalist Physical - Physical exam Narrative exam: GENERAL: Well-developed well-nourished. In no acute distress. HEENT: Normocephalic. Atraumatic. NECK: Supple. CHEST/LUNGS: CTAB on room air HEART/CARDIOVASCULAR: RRR. No murmur, rubs or gallops appreciated. ABDOMEN: +BS. mildly TTP. ND. SKIN: No rashes noted. NEURO: No focal motor deficit. Follows all commands and is ambulatory. MUSCULOSKELETAL: No joint effusion EXTREMITIES: No cyanosis, clubbing or edema. PSYCH: Cooperative. - Constitutional Vitals: Temp Pulse Resp BP Pulse Ox 98.8 F 75 16 177/74 94 09/16/21 04:06 09/16/21 04:06 09/16/21 04:06 09/16/21 04:06 09/16/21 04:06 General appearance: Present: no acute distress, well-nourished, obese Results - Labs CBC & Chem 7: 09/16/21 05:31 09/16/21 05:31 Labs: Laboratory Last Values WBC 8.9 K/mm3 (4.5-11.0) 09/16/21 05:31 RBC 4.67 M/mm3 (3.65-5.03) 09/16/21 05:31 Hgb 12.1 gm/dl (10.1-14.3) 09/16/21 05:31 Hct 36.1 % (30.3-42.9) 09/16/21 05:31 MCV 77 fl (79-97) L 09/16/21 05:31 MCH 26 pg (28-32) L 09/16/21 05:31 MCHC 34 % (30-34) 09/16/21 05:31 RDW 14.0 % (13.2-15.2) 09/16/21 05:31 Plt Count 257 K/mm3 (140-440) 09/16/21 05:31 Lymph % (Auto) 6.9 % (13.4-35.0) L 09/13/21 06:05 [place] % (Auto) Sample Checker 09/16/21 05:31 Eos % (Auto) 1.4 % (0.0-4.3) 09/13/21 06:05 Baso % (Auto) 0.5 % (0.0-1.8) 09/13/21 06:05 Lymph # (Auto) 0.4 K/mm3 (1.2-5.4) L 09/13/21 06:05 [place] # (Auto) 0.5 K/mm3 (0.0-0.8) 09/13/21 06:05 Eos # (Auto) 0.1 K/mm3 (0.0-0.4) 09/13/21 06:05 Baso # (Auto) 0.0 K/mm3 (0.0-0.1) 09/13/21 06:05 Add Manual Diff Complete 09/16/21 05:31 Total Counted 100 09/16/21 05:31 Seg Neutrophils % 81.2 % (40.0-70.0) H 09/13/21 06:05 Seg Neuts % (Manual) 83.0 % (40.0-70.0) H 09/16/21 05:31 Band Neutrophils % 4.0 % 09/16/21 05:31 Lymphocytes % (Manual) 6.0 % (13.4-35.0) L 09/16/21 05:31 Reactive Lymphs % (Man) 2.0 % 09/16/21 05:31 Monocytes % (Manual) 5.0 % (0.0-7.3) 09/16/21 05:31 Eosinophils % (Manual) 0 % (0.0-4.3) 09/16/21 05:31 Basophils % (Manual) 0 % (0.0-1.8) 09/16/21 05:31 Metamyelocytes % 0 % 09/16/21 05:31 Myelocytes % 0 % 09/16/21 05:31 Promyelocytes % 0 % 09/16/21 05:31 Blast Cells % 0 % 09/16/21 05:31 Nucleated RBC % Not Reportable 09/16/21 05:31 Seg Neutrophils # 4.4 K/mm3 (1.8-7.7) 09/13/21 06:05 Seg Neutrophils # Man 7.4 K/mm3 (1.8-7.7) 09/16/21 05:31 Band Neutrophils # 0.4 K/mm3 09/16/21 05:31 Lymphocytes # (Manual) 0.5 K/mm3 (1.2-5.4) L 09/16/21 05:31 Abs React Lymphs (Man) 0.2 K/mm3 09/16/21 05:31 Monocytes # (Manual) 0.4 K/mm3 (0.0-0.8) 09/16/21 05:31 Eosinophils # (Manual) 0.0 K/mm3 (0.0-0.4) 09/16/21 05:31 Basophils # (Manual) 0.0 K/mm3 (0.0-0.1) 09/16/21 05:31 Metamyelocytes # 0.0 K/mm3 09/16/21 05:31 Myelocytes # 0.0 K/mm3 09/16/21 05:31 Promyelocytes # 0.0 K/mm3 09/16/21 05:31 Blast Cells # 0.0 K/mm3 09/16/21 05:31 WBC Morphology Not Reportable 09/16/21 05:31 Hypersegmented Neuts Not Reportable 09/16/21 05:31 Hyposegmented Neuts Not Reportable 09/16/21 05:31 Hypogranular Neuts Not Reportable 09/16/21 05:31 Smudge Cells Not Reportable 09/16/21 05:31 Toxic Granulation Not Reportable 09/16/21 05:31 Toxic Vacuolation Not Reportable 09/16/21 05:31 Dohle Bodies Not Reportable 09/16/21 05:31 Pelger-Huet Anomaly Not Reportable 09/16/21 05:31 Dot Rods Not Reportable 09/16/21 05:31 Platelet Estimate Consistent w auto 09/16/21 05:31 Clumped Platelets Not Reportable 09/16/21 05:31 Plt Clumps, EDTA Not Reportable 09/16/21 05:31 Large Platelets Not Reportable 09/16/21 05:31 Giant Platelets Not Reportable 09/16/21 05:31 Platelet Satelliting Not Reportable 09/16/21 05:31 Plt Morphology Comment Not Reportable 09/16/21 05:31 RBC Morphology Normal 09/16/21 05:31 Dimorphic RBCs Not Reportable 09/16/21 05:31 Polychromasia Not Reportable 09/16/21 05:31 Hypochromasia Not Reportable 09/16/21 05:31 Poikilocytosis Not Reportable 09/16/21 05:31 Anisocytosis Not Reportable 09/16/21 05:31 Microcytosis Not Reportable 09/16/21 05:31 Macrocytosis Not Reportable 09/16/21 05:31 Spherocytes Not Reportable 09/16/21 05:31 Pappenheimer Bodies Not Reportable 09/16/21 05:31 Sickle Cells Not Reportable 09/16/21 05:31 Target Cells Not Reportable 09/16/21 05:31 Tear Drop Cells Not Reportable 09/16/21 05:31 Ovalocytes Not Reportable 09/16/21 05:31 Helmet Cells Not Reportable 09/16/21 05:31 [place] Bodies Not Reportable 09/16/21 05:31 [place] Rings Not Reportable 09/16/21 05:31 [place] Cells Not Reportable 09/16/21 05:31 Bite Cells Not Reportable 09/16/21 05:31 Crenated Cell Not Reportable 09/16/21 05:31 Elliptocytes Not Reportable 09/16/21 05:31 Acanthocytes (Spur) Not Reportable 09/16/21 05:31 Rouleaux Not Reportable 09/16/21 05:31 Hemoglobin C Crystals Not Reportable 09/16/21 05:31 Schistocytes Not Reportable 09/16/21 05:31 Malaria parasites Not Reportable 09/16/21 05:31 Wang Bodies Not Reportable 09/16/21 05:31 Hem Pathologist Commnt No 09/16/21 05:31 Sodium 142 mmol/L (137-145) 09/16/21 05:31 Potassium 3.3 mmol/L (3.6-5.0) L 09/16/21 05:31 Chloride 101.4 mmol/L (98-107) 09/16/21 05:31 Carbon Dioxide 27 mmol/L (22-30) 09/16/21 05:31 Anion Gap 17 mmol/L 09/16/21 05:31 BUN 13 mg/dL (7-17) 09/16/21 05:31 Creatinine 0.8 mg/dL (0.6-1.2) 09/16/21 05:31 Estimated GFR > 60 ml/min 09/16/21 05:31 BUN/Creatinine Ratio 16 % 09/16/21 05:31 Glucose 92 mg/dL (65-100) 09/16/21 05:31 POC Glucose 95 mg/dL (70-105) 09/16/21 11:53 Lactic Acid 1.00 mmol/L (0.7-2.0) 09/10/21 15:34 Calcium 8.8 mg/dL (8.4-10.2) 09/16/21 05:31 Phosphorus 3.70 mg/dL (2.5-4.5) 09/16/21 05:31 Magnesium 2.00 mg/dL (1.7-2.3) 09/16/21 05:31 Total Bilirubin 0.40 mg/dL (0.1-1.2) 09/10/21 07:35 AST 15 units/L (5-40) 09/10/21 07:35 ALT 18 units/L (7-56) 09/10/21 07:35 Alkaline Phosphatase 70 units/L (35-129) 09/10/21 07:35 Total Protein 7.7 g/dL (6.3-8.2) 09/10/21 07:35 Albumin 4.7 g/dL (3.9-5) 09/10/21 07:35 Albumin/Globulin Ratio 1.6 % 09/10/21 07:35 Lipase 26 units/L (13-60) 09/10/21 13:05 Urine Color Yellow (Yellow) 09/10/21 06:00 Urine Turbidity Clear (Clear) 09/10/21 06:00 Urine pH 5.0 (5.0-7.0) 09/10/21 06:00 Ur Specific [place] 1.016 (1.003-1.030) 09/10/21 06:00 Urine Protein 30 mg/dl mg/dL (Negative) 09/10/21 06:00 Urine Glucose (UA) Neg mg/dL (Negative) 09/10/21 06:00 Urine Ketones Neg mg/dL (Negative) 09/10/21 06:00 Urine Blood Neg (Negative) 09/10/21 06:00 Urine Nitrite Neg (Negative) 09/10/21 06:00 Urine Bilirubin Neg (Negative) 09/10/21 06:00 Urine Urobilinogen < 2.0 mg/dL (<2.0) 09/10/21 06:00 Ur Leukocyte Esterase Tr (Negative) 09/10/21 06:00 Urine WBC (Auto) 4.0 /HPF (0.0-6.0) 09/10/21 06:00 Urine RBC (Auto) 1.0 /HPF (0.0-6.0) 09/10/21 06:00 U Epithel Cells (Auto) 4.0 /HPF (0-13.0) 09/10/21 06:00 Urine Bacteria (Auto) 1+ /HPF (Negative) 09/10/21 06:00 Urine Mucus Few /HPF 09/10/21 06:00 Microbiology: Microbiology 09/10/21 15:34 Peripheral/Venous Blood Culture - Final NO GROWTH AFTER 5 DAYS 09/10/21 15:34 Peripheral/Venous Blood Culture - Final NO GROWTH AFTER 5 DAYS [place]/IV: Voiding Method Toilet Active Medications - Current Medications Current Medications: Generic Name Dose Route Start Last Admin Trade Name Freq PRN Reason Stop Dose Admin Acetaminophen 650 mg 09/10/21 15:37 09/12/21 12:08 Acetaminophen 325 Mg Tab PO 650 mg Q4H PRN Administration Pain MILD(1-3)/Fever >100.5/SANDERS Albuterol 2.5 mg 09/10/21 15:37 Albuterol 2.5 Mg/3 Ml Nebu IH Q4HRT PRN Shortness Of Breath Bupropion HCl 150 mg 09/12/21 18:00 09/16/21 10:29 Bupropion 100 Mg Tab PO 150 mg DAILY KURT Administration Diphenhydramine HCl 25 mg 09/11/21 07:10 09/14/21 14:08 Diphenhydramine 50 Mg/Ml Vial IV 25 mg Q6H PRN Administration Itching Fluoxetine HCl 20 mg 09/13/21 10:00 09/16/21 10:27 Fluoxetine 20 Mg Cap PO 20 mg QDAY KURT Administration Hydromorphone HCl 0.5 mg 09/11/21 15:17 09/14/21 09:53 Hydromorphone 0.5 Mg/0.5 Ml Inj IV 0.5 mg Q4H PRN Administration Pain , Severe (7-10) Sodium Chloride 1,000 mls @ 75 mls/hr 09/11/21 12:30 09/16/21 05:41 Nacl 0.9% 1000 Ml IV 75 mls/hr DIRECT KURT Administration Levofloxacin/Dextrose 750 mg in 150 mls @ 100 mls/hr 09/12/21 16:30 09/15/21 17:14 Levaquin 750mg/150ml IV 100 mls/hr Q24H KURT Administration Protocol Metronidazole 500 mg in 100 mls @ 100 mls/hr 09/12/21 16:00 09/16/21 08:55 Flagyl 500 Mg/100 Ml IV 100 mls/hr Q8H KURT Administration Protocol Ketorolac Tromethamine 15 mg 09/11/21 20:00 09/16/21 08:25 Ketorolac 30 Mg/1 Ml Inj IV 09/16/21 19:59 15 mg Q6H KURT Administration Loratadine/Pseudoephedrine Sulfate 1 each 09/11/21 16:00 09/15/21 10:59 Loratadine/Pseudoephedrine 10-240 Mg Tab 24hr PO 1 each Q24HR KURT Administration Metoclopramide HCl 10 mg 09/16/21 09:00 09/16/21 10:28 Metoclopramide 10 Mg/2 Ml Inj IV 10 mg Q6H KURT Administration Montelukast Sodium 10 mg 09/12/21 22:00 09/15/21 21:47 Montelukast 10 Mg Tab PO Not Given HS [facility] Morphine Sulfate 2 mg 09/13/21 12:49 09/16/21 00:24 Morphine 2 Mg/1 Ml Inj IV 2 mg Q4H PRN Administration Pain , Severe (7-10) Ondansetron HCl 4 mg 09/10/21 15:37 09/15/21 04:48 Ondansetron 4 Mg/2 Ml Inj IV 4 mg Q8H PRN Administration Nausea And Vomiting Oxycodone/Acetaminophen 2 tab 09/13/21 12:48 09/14/21 16:49 Oxycodone /Acetaminophen 5-325mg Tab PO 2 tab Q6H PRN Administration Pain, Moderate (4-6) Promethazine HCl 12.5 mg 09/15/21 04:59 09/16/21 02:47 Promethazine 12.5 Mg/10 Ml Oral Liqd PO 12.5 mg Q6H PRN Administration Nausea And Vomiting Promethazine HCl 12.5 mg 09/15/21 05:57 09/15/21 12:31 Promethazine 12.5 Mg Rect Supp DE 12.5 mg Q6H PRN Administration Nausea And Vomiting Simethicone 80 mg 09/13/21 14:46 09/15/21 00:19 Simethicone 80 Mg Chew Tab PO 80 mg Q6H PRN Administration Gas pain Sodium Chloride 10 ml 09/10/21 22:00 09/16/21 10:31 Sodium Chloride 0.9% 10 Ml Flush Syringe IV 10 ml BID KURT Administration Sodium Chloride 10 ml 09/10/21 15:37 09/16/21 02:27 Sodium Chloride 0.9% 10 Ml Flush Syringe IV 10 ml PRN PRN Administration LINE FLUSH Nutrition/Malnutrition Assess - Dietary Evaluation Nutrition/Malnutrition Findings: Nutrition Notes Start: 09/16/21 12:28 Freq: Status: Active Protocol: Document 09/16/21 12:28 CRICKET (Rec: 09/16/21 12:34 CRICKET [id number]) Nutrition Notes Need for Assessment generated from: LOS Initial or Follow up Assessment Current Diagnosis Diabetes Other Pertinent Diagnosis s/p appendectomy sec to perforated appendicitis Current Diet FL (for lunch today), has been NPO Labs/Tests K 3.3 Pertinent Medications Reglan, NS at 75ml/hr Height 5 ft 9 in Weight 107 kg [place] Body Weight (kg) 65.90 BMI 34.8 Weight Status Obese Subjective/Other Information Pt screened for LOS. She had intractable vomiting yesterday . Abdominal Xray yesterday revealed increased dilated small bowel loops. Burn Absent Trauma Absent GI Symptoms Nausea,Vomiting Minimum of two criteria No #1 Nutrition Diagnosis Altered GI function Etiology s/p perforated appendicitis As Evidenced by Signs and Symptoms N/V reported yesterday Is patient on ventilator? No Is Patient Ambulatory and/or Out of Bed Yes REE-([facility]-ambulatory/OOB) [ 2228.694 [id number]] Kcal/Kg value to use for calculation 17 Approximate Energy Requirements Using 1819 kcal/Kg Calculation Used for Recommendations Kcal/kg Additional Notes Pro needs 0.8-1g/kg adjBW: 69- 86g/day Fluid needs 1ml/kcal Nutrition Intervention Change Diet Order: Continue current diet as tolerated Goal #1 PO tolerance Anticipated Discharge Needs: Soft diet, CHO-controlled Follow-Up By: 09/19/21 Additional Comments F/U: PO tolerance, diet advancement
[2021-09-16] MEDS ORDERED: POTASSIUM CHLORIDE ER 20 MEQ TAB PO SCH (14:03)
[2021-09-16] MEDS: LORATADINE/PSEUDOEPHEDRINE 10-240 MG TAB 24HR PO SCH (15:48)
[2021-09-16] MEDS: MONTELUKAST 10 MG TAB PO SCH (21:10)
[2021-09-17] MEDS: metroNIDAZOLE/NS 500 MG/100 ML 500 MG/100 ML BAG IV SCH ×2 (00:07→08:00)
[2021-09-17] MEDS: SIMETHICONE 80 MG CHEW TAB PO PRN (00:15)
[2021-09-17] MEDS: METOCLOPRAMIDE 10 MG/2 ML INJ IV SCH ×2 (02:26→09:30)
[2021-09-17 06:27] LABS: BUN/Creatinine Ratio 14; Blood Urea Nitrogen 11 mg/dL (7-17); Calcium 8.3 mg/dL (8.4-10.2); Hemolysis Index 5
[2021-09-17] MEDS: POTASSIUM CHLORIDE ER 20 MEQ TAB PO ONE ×2 (07:13→07:15)
[2021-09-17] MEDS: buPROPion 100 MG TAB PO SCH (09:31)
[2021-09-17] MEDS: FLUoxetine 20 MG CAP PO SCH (09:31)
[2021-09-17] MEDS: SODIUM CHLORIDE 0.9% 1000 ML 1,000 ML IV SCH (09:32)
[2021-09-17] MEDS: LORATADINE/PSEUDOEPHEDRINE 10-240 MG TAB 24HR PO SCH (09:59)
[2021-09-17 12:00] VITALS: BP 158/93
--- NOTE | 2021-09-17 12:39 | Progress Note ---
Assessment and Plan Postop day #7 status post laparoscopic appendectomy for perforated appendicitis. Patient is afebrile and stable. Patient's postop ileus has resolved. From surgery perspective patient can be discharged today. Patient instructed to stay on full liquid to soft diet and advance as tolerated. Patient to follow-up in the office with me in 2 weeks. Subjective Date of service: 09/17/21 Narrative: No acute events overnight. Patient tolerated full liquids without any nausea or vomiting. Patient had bowel movements this morning. Pain is controlled. Objective Vital Signs - 12hr 09/17/21 09/17/21 10:00 11:48 Temperature 98.8 F Pulse Rate 81 Respiratory 20 Rate Blood Pressure 158/93 O2 Sat by Pulse 65 L 98 Oximetry - General physical appearance well developed, no distress, no pain, obese - Eyes PERRL - Respiratory normal expansion, normal respiratory effort - Abdomen soft, not tender, not guarding, other (Incisions clean dry and intact, TREY drain serous drainage. It was removed.) - Labs 09/16/21 05:31 09/17/21 05:11 Diabetes panel 09/17/21 Range/Units 05:11 Sodium 138 (137-145) mmol/L Potassium 3.4 L (3.6-5.0) mmol/L Chloride 103.7 (98-107) mmol/L Carbon Dioxide 24 (22-30) mmol/L BUN 11 (7-17) mg/dL Creatinine 0.8 (0.6-1.2) mg/dL Glucose 94 (65-100) mg/dL Calcium 8.3 L (8.4-10.2) mg/dL Calcium panel 09/17/21 Range/Units 05:11 Calcium 8.3 L (8.4-10.2) mg/dL Pituitary panel 09/17/21 Range/Units 05:11 Sodium 138 (137-145) mmol/L Potassium 3.4 L (3.6-5.0) mmol/L Chloride 103.7 (98-107) mmol/L Carbon Dioxide 24 (22-30) mmol/L BUN 11 (7-17) mg/dL Creatinine 0.8 (0.6-1.2) mg/dL Glucose 94 (65-100) mg/dL Calcium 8.3 L (8.4-10.2) mg/dL Adrenal panel 06/04/22 Range/Units 05:11 Sodium 138 (137-145) mmol/L Potassium 3.4 L (3.6-5.0) mmol/L Chloride 103.7 (98-107) mmol/L Carbon Dioxide 24 (22-30) mmol/L BUN 11 (7-17) mg/dL Creatinine 0.8 (0.6-1.2) mg/dL Glucose 94 (65-100) mg/dL Calcium 8.3 L (8.4-10.2) mg/dL
--- NOTE | 2021-09-17 12:57 | Discharge Summary ---
Providers - Providers Date of Admission: 09/10/21 17:22 Date of discharge: 09/17/21 Attending physician: VENKATA BHATIA MD 09/10/21 15:36 Consult to Physician [CONS] Urgent Comment: Consulting Provider: BC RIOS Physician Instructions: Reason For Exam: appendicitis 09/15/21 11:59 Physical Therapy Evaluation and Treat [CONS] Routine Comment: help with mobility. 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 CT of the abdomen pelvis showed evidence of acute appendicitis. General surgery was consulted and laparoscopic appendectomy was performed on 09/13. She developed postoperative ileus. When she had return of bowel function and was able to tolerate a diet she was discharged home. Disposition: 01 HOME / SELF CARE / HOMELESS Final Discharge Diagnosis (Prints w/discharge instructions): Acute perforated appendicitis. Intractable nausea vomiting. SIRS secondary to appendicitis. Obesity hypoventilation syndrome. Obesity. Type 2 diabetes mellitus. Fluid in endometrial cavity Time spent for discharge: 35 minutes Core Measure Documentation - Palliative Care Palliative Care/ Comfort Measures: Not Applicable - Core Measures Any of the following diagnoses?: none Exam - Physical Exam Narrative exam: GENERAL: Well-developed well-nourished. In no acute distress. HEENT: Normocephalic. Atraumatic. NECK: Supple. CHEST/LUNGS: CTAB on room air HEART/CARDIOVASCULAR: RRR. No murmur, rubs or gallops appreciated. ABDOMEN: +BS. mildly TTP. ND. SKIN: No rashes noted. NEURO: No focal motor deficit. Follows all commands and is ambulatory. MUSCULOSKELETAL: No joint effusion EXTREMITIES: No cyanosis, clubbing or edema. PSYCH: Cooperative. - Constitutional Vitals: Temp Pulse Resp BP Pulse Ox 98.8 F 81 20 158/93 98 09/17/21 11:48 09/17/21 11:48 09/17/21 11:48 09/17/21 11:48 09/17/21 11:48 Plan Care Plan Goals: Please follow-up with Dr. Rios in 2 weeks. Make sure to continue full liquid diet while home and advance all the way to regular food as you can tolerate. Follow up with: PRIMARY CAREMD [Primary Care Provider] - 3-5 Days BC RIOS MD [Staff Physician] - 14 Days Prescriptions: Terconazole [Terazol 7] 7 applic VG QHS 7 Days #7 each oxyCODONE /ACETAMINOPHEN [Percocet 5/325 mg] 2 tab PO Q6H PRN 3 Days #24 tablet PRN Reason: Pain, Moderate (4-6)
[2021-09-17] MEDS: MORPHINE 2 MG/1 ML INJ IV PRN (13:08)
== END 2021-09-17 14:00 | disposition home or self-care (01) | DRG 339 ==
LOC: ED 06:31 → 3A 17:22
PROVIDERS: ADMIT Internal Medicine; ATTEND Student in an Organized Health Care Education/Training Program
PROC: 0DTJ4ZZ Resection of Appendix, Percutaneous Endoscopic Approach (ICD-10-PCS; principal; 2021-09-10)
DX: K35.32 Acute appendicitis with perforation, localized peritonitis, and gangrene, without abscess (principal); E66.2 Morbid (severe) obesity with alveolar hypoventilation; R65.10 Systemic inflammatory response syndrome (SIRS) of non-infectious origin without acute organ dysfunction; Z68.45 Body mass index [BMI] 70 or greater, adult; E11.9 Type 2 diabetes mellitus without complications; E03.9 Hypothyroidism, unspecified; E88.81 Metabolic syndrome and other insulin resistance; Z71.3 Dietary counseling and surveillance; Z83.3 Family history of diabetes mellitus; Z82.49 Family history of ischemic heart disease and other diseases of the circulatory system
CPT/HCPCS: 36415; 74018; 74177; 80048; 80053; 81001; 82140; 82962; 83690; 83735; 84100; 85007; 85025; 87040; 88304; 94640; 94760; G0378; J1815; J3490; J7517; J0330; J1100; J1170; J1200; J1885; J1956; J2250; J2270; J2405; J2543; J2704; J2765; J3010; J7030; Q0162; Q0169; Q9967